=== PATIENT | male | born 1960 | race Caucasian/White ===

== ENCOUNTER 2023-02-09 10:44 | Inpatient (IN) | payer SELFPAY ==
[2023-02-09] VITALS (18 sets, daily range): BP systolic 105–165; BP diastolic 64–160; PULSE 93–115; RESP 6–28; TEMP 37–37.4; O2SAT 86–98
--- NOTE | 2023-02-09 11:15 | RT.EKG_ITS ---
APPROVED REPORT Exam: Resting ECG Reason for Exam: peter cole Patient Location: E HR:105 bpm ECG Measurements Heart Rate 105 AXIS IL 152 P 80 QRSd 99 QRS 251 QT 341 T -17 QTc 451 Conclusion Sinus tachycardia...rate> 99 Probable left atrial enlargement...P >50mS, <-0.10mV V1 Inferior infarct, old...Q >35mS, II III aVF Anterior infarct, old...Q >40mS, abnormal ST-T, V2-V5 Physician: elevation in anterior leads and minimal depression in inferior leads. does not meet stemi criterion. findings are new
[2023-02-09 12:04] LABS: Bilirubin Negative (Negative); Blood Negative (Negative); Clarity Clear (Clear); Glucose Negative (Negative); Ketones Negative (Negative); Leukocyte Esterase Negative (Negative); Nitrite Negative (Negative); Urobilinogen 0.2 mg/dL (Up to 0.2)
--- NOTE | 2023-02-09 12:25 | DI.RAD_ITS ---
Exam(s) XR FOOT LT COMPLETE EXAM: XR FOOT LT COMPLETE CLINICAL HISTORY: pain, redness. TECHNIQUE: 2D digital imaging was performed. COMPARISON: CR XR FOOT RT COMPLETE from 02/09/2023 FINDINGS: 3 views No evidence of acute fracture nor diastasis of the Lisfranc joint. Accessory ossicle on the medial a spect of the foot adjacent to the navicular tuberosity is similar to the opposite side. There are degenerative changes in the great toe metatarsophalangeal joint, more so laterally than med ially where there is significant joint space narrowing and osteophytes. Interphalangeal joint of the great toe appears unremarkable as does the 1st tarsometatarsal joint. Large inferior calcaneal spur is similar to the opposite side. Bone density normal. No osseous lesions. Dorsal soft tissue swel ling noted. There is no radiographic evidence of osteomyelitis. IMPRESSION: As above. DATA REPOSITORY: RADIATION DOSE DELIVERED:
--- NOTE | 2023-02-09 12:38 | W.ED.GENAD ---
Discharge Plan Disposition Patient Disposition: Admit to [facility] Discharge Details Clinical Impression: Anasarca, Alcohol use, Elevated BP without diagnosis of hypertension, Hyperbilirubinemia, Polycythemia Admit Date/Time: 02/09/23 13:47 Admit Provider: Larry Thornton Attending Provider: Larry Thornton Primary Care Provider: None,None ED Provider: Millie Raymond Discharge Data Discharge Date/Time-TO BE ENTERED AT DEPARTURE: 02/09/23 15:25 Medical Decision Making 62-year-old male with unknown medical history presents with anasarca to bilateral lower extremities, no abdominal bruit or pulsatile mass, distal pulses obtained via Doppler and intact, evidence of cellulitis to bilateral lower extremity secondary to blisters likely from edema, initiated on Zosyn, will order MRSA swab at the request of the admitting hospitalist and INR No obvious hepatomegaly or ascites on exam, abdomen completely nontender, distal pulses intact, no indication for emergent CT abdomen and pelvis BNP is quite elevated at 5200, we are going to obtain bedside ultrasound, however secondary to capacity limitations, this was not performed in the emergency department at this time He is in no acute respiratory distress He is on telemetry monitoring We will treat for cellulitis, anasarca with 20 mg of IV Lasix and diuretic na?ve patient Troponin negative x1, case discussed with admitting hospitalist COVID-19 0.5, hematocrit 60.9 Low suspicion for PE or DVT clinically with symmetrical and bilateral edema HPI General Date/Time Provider Initiated Documentation: 02/09/23 10:55. HPI Narrative: This 62-year-old male presents with report of bilateral leg swelling that started approximately a week ago. He denies any chest pain or shortness of breath. He denies any abdominal swelling. He states he also has had blisters that are very painful to his feet. He is having difficulty ambulating because of his swelling and pain. He denies any known fever or chills. He denies any orthopnea. He denies history of similar symptoms in the past. He drinks between 1 and 2 vodkas with coke daily, he smokes tobacco daily. He denies any illicit drug use. Related Data Home Medications Medication Instructions Recorded Confirmed Unknown [No Known Home Meds] 02/09/23 02/09/23 Allergies Allergy/AdvReac Type Severity Reaction Status Date / Time No Known Allergies Allergy Unverified 02/09/23 10:56 General Stated Complaint: GenMedical ESTER: 3 PFSH All Active Problems (Updated 02/10/23 @ 20:06 by KARYN Gold) Discharge planning issues (Acute) Polycythemia (Acute) Hyperbilirubinemia (Acute) Elevated BP without diagnosis of hypertension (Acute) Alcohol use (Acute) Tobacco abuse disorder (Acute) Anasarca (Acute) Social History Smoking/Tobacco Use Status: Current every day Tobacco Type: cigarettes Smoking risk assessment performed?: Yes Alcohol Intake: current Alcohol Intake frequency: 0-2 drinks per day Alcohol type: hard liquor Drug use: Never Substance use type: does not use Do you feel safe at home: Yes Do you feel safe in your relationship?: Yes Exam Narrative Exam Narrative: Patient disheveled, appears chronically ill, pupils equal round reactive to light and accommodation, lungs clear to auscultation bilaterally, cardiac rate and rhythm, tachycardic regular rhythm, no murmur, abdomen soft, no significant hepatomegaly, skin, erythema noted to bilateral feet, surrounding large ulcerations, no crepitus, fully alert and oriented, 4+ firm edema, anasarca to bilateral lower extremities extending up to the gluteal fold, no evidence of testicular involvement, no evidence of Hubert's gangrene, neurovascularly intact to bilateral lower and upper extremities Course Vital Signs Vital signs: Vital Signs Temperature 37.4 C 02/09/23 10:50 Pulse 113 H 02/09/23 10:50 Respiratory Rate 16 02/09/23 10:50 Blood Pressure 146/104 H 02/09/23 10:50 Pulse Oximetry 91 L 02/09/23 10:50 Temperature 37.4 C 02/09/23 10:50 Temperature Source Oral 02/09/23 10:50 Pulse 113 H 02/09/23 10:50 Respiratory Rate 16 02/09/23 10:50 Respiratory Effort Normal 02/09/23 10:54 Blood Pressure 146/104 H 02/09/23 10:50 Blood Pressure Position Sitting 02/09/23 10:50 Pulse Oximetry 91 L 02/09/23 10:50 Oxygen Delivery Method Room Air 02/09/23 10:50 Oxygen Flow Rate 0 02/09/23 10:50 Pain Level 8 02/09/23 10:50 Lab/Test Results Lab/Test Results: 02/09/23 12:24 Blood Blood Culture - Pending 02/09/23 12:22 Blood Blood Culture - Pending 02/09/23 12:22 Blood Blood Culture - Pending 02/09/23 12:15 Blood Blood Culture - Pending Laboratory Tests Range/Units 02/09/23 11:52 Urine Color (Yellow) Yellow Urine Clarity (Clear) Clear Urine pH (5-8) 7.0 Ur Specific Raymond (1.005-1.025) 1.020 Urine Protein (Negative) mg/dL Negative Urine Ketones (Negative) mg/dL Negative Urine Blood (Negative) Negative Urine Nitrite (Negative) Negative Urine Bilirubin (Negative) Negative Urine Urobilinogen (Up to 0.2) mg/dL 0.2 Ur Leukocyte Esterase (Negative) Negative Urine Glucose (Negative) mg/dL Negative PAWSS Have you Been Recently Intoxicated or Drunk Within the Last 30 days?: No Have you Ever Experienced Previous Episodes of Alcohol Withdrawal?: No Have you ever Experienced Withdrawal Seizures?: No Have you ever Experienced Delirium Tremens(DT)s?: No Have you ever undergone Alcohol Rehabilitation Treatment (i.e, inpt ot outpatient treatment programs)?: No Have you ever Experienced Blackouts?: No Have you ever Combined Alcohol with other Downers within the last 90 days?: No Have you ever Combined Alcohol with any other Substance of Abuse during the last 90 days?: No Result: 0
[2023-02-09 12:43] LABS: Abs Immature Grans 0.03 10^3/uL (0.0-0.06); Absolute Basophil Count 0.08 10^3/uL (0.0-0.2); Absolute Eosinophil Count 0.07 10^3/uL (0.0-0.7); Absolute Lymphocyte Count 0.83 10^3/uL (1.2-3.4); Absolute Monocyte Count 1.22 10^3/uL (0.1-0.8); Absolute Neutrophil Count 5.43 10^3/uL (1.2-6.7); Eosinophils % 0.9; Immature Grans % 0.4; Lymphocytes % 10.8; MCH 30.7 pg (27.0-33.0); MCV 96 fL (80-95); MPV 10.1 fL (8.0-11.0); Monocytes % 15.9; Platelet Count 144 10^3/uL (130-400); RBC 6.36 10^6/uL (4.36-5.78); RDW 15.4 % (11.8-14.1); RDW-SD 53.6 fL; WBC 7.66 10^3/uL (4.4-10.8)
--- NOTE | 2023-02-09 12:49 | DI.RAD_ITS ---
Exam(s) XR CHEST 2V PA LATERAL EXAM: XR CHEST 2V PA LATERAL CLINICAL HISTORY: shortness of breath. TECHNIQUE: 2D digital imaging was performed. COMPARISON: No exams were available for comparison FINDINGS: 2 views: Heart size is normal. The mediastinum is not widened. Lungs are clear. No infiltrates nor pleural effusions. IMPRESSION: No acute pulmonary findings. DATA REPOSITORY: RADIATION DOSE DELIVERED:
--- NOTE | 2023-02-09 12:49 | DI.RAD_ITS ---
Exam(s) XR FOOT RT COMPLETE EXAM: XR FOOT RT COMPLETE CLINICAL HISTORY: pain, redness. TECHNIQUE: 2D digital imaging was performed. COMPARISON: No exams were available for comparison FINDINGS: 3 views No evidence of acute fracture or diastasis of the Lisfranc joint. Large inferior calcaneal spur note d. Accessory ossicle noted on the medial aspect of the foot, this being a sesamoid bone in the dista l tibialis posterior tendon just proximal to the navicular tuberosity. Great toe metatarsophalangeal joint appears unremarkable. Mild degenerative changes are noted in the 1st tarsometatarsal joint. Bone density normal. There is no radiographic evidence of osteomyelitis. IMPRESSION: As above. DATA REPOSITORY: RADIATION DOSE DELIVERED:
[2023-02-09 13:00] LABS: HCT 60.9 % (40.0-50.0); HGB 19.5 g/dL (13.5-17.5)
[2023-02-09 13:11] LABS: ALT 31 U/L (16-63); AST 35 U/L (15-37); Albumin 3.6 g/dL (3.4-5.0); Alkaline Phosphatase 94 U/L (46-116); Anion Gap 1.5 mmol/L (3-11); BUN 7 mg/dL (7-18); CO2 39.5 mmol/L (21.0-32.0); CREATININE 0.9 mg/dL (0.70-1.30); Calcium 9.8 mg/dL (8.5-10.1); Chloride 96 mmol/L (98-107); Estimated GFR 95.97 (mL/min/1.73m2); Glucose 77 mg/dL (74-106); Magnesium 1.6 mg/dL (1.8-2.4); NT-proBNP 5735 pg/mL (<300); Potassium 4.1 mmol/L (3.5-5.1); Sodium 137 mmol/L (136-145); TSH (W/Ref FT4) 2.33 uIU/mL (0.36-3.74); Total Protein 8.2 g/dL (6.4-8.2); Troponin I < 50 ng/L (<or=60)
[2023-02-09 13:26] LABS: Lactate 1.2 mmol/L (0.6-1.4)
[2023-02-09] MEDS: PIPERACILLIN/TAZO 3.375 GM in Normal Saline 50 ML IVPB (13:35)
[2023-02-09] MEDS: Furosemide 20 MG/2 ML VIAL IVP ×2 (13:59→17:51)
[2023-02-09 15:23] LABS: Source Nasal/Nares
[2023-02-09 15:27] LABS: Troponin I < 50 ng/L (<or=60)
[2023-02-09 16:07] LABS: COVID-19 PCR Negative (Negative)
[2023-02-09] MEDS: Magnesium Oxide 400 MG TAB PO ×2 (16:12→19:26)
--- NOTE | 2023-02-09 16:38 | HPE_ITS ---
Date of service: 02/09/23 Time of Service: 16:38 Assessment and Plan Assessment and plan (1) Anasarca: Status: Acute Assessment and plan: No known heart disease; hasn't received health care for 30+ years. Echocardiogram ordered. Lasix 20mg IV given in ED and has been diuresing since; will give another 20mg IV now and the schedule BID; increase dose if output is inadequate. Elevate legs. No compression stockings d/t lesions on dorsum of feet, though will have wound care see and could consider Unna boots. Heart healthy diet. (2) Tobacco abuse disorder: Status: Acute Assessment and plan: He has cut-back from 1+ppd to 7 cigarettes daily. Nicoderm 21mg patch. Encourage ongoing cessation. (3) Alcohol use: Status: Acute Assessment and plan: He endorses 1-2 drinks of vodka daily. LFTs ok. Bilirubin mildly elevated. Monitor withdrawal symptoms and begin CIWA scoring if necessary. (4) Elevated BP without diagnosis of hypertension: Status: Acute Assessment and plan: Will monitor. If remains elevated initiate amlodipine 5mg daily. (5) Hyperbilirubinemia: Status: Acute Assessment and plan: Monitor. No abd pain/jaundice. (6) Polycythemia: Status: Acute Assessment and plan: Smoking related (chronic CO exposure from inhaled cigarette smoke). He is weaning off cigarettes. (7) Discharge planning issues: Status: Acute Assessment and plan: Consider costs of medications prescribed; self-pay. Will have f/u with PCP group designated on the day of admission; currently has no healthcare provider. History of Present Illness History of Present Illness Chief Complaint: Leg swelling Narrative: This is a 62 yo male who is not engaged with the medical community and has no known medical history. He does smoke cigarettes daily; down to 7/day from 1 ppd. He also endorses drinking two Vodka drinks daily. He presented to the ED c/o appx 1 week h/o bilateral leg swelling along with 2 blood blisters on distal dorsum of each foot that ruptured. He has been having difficulty ambulating because of the discomfort in both legs. No fever/chills. No CP/SOA. No N/V/abd pain. In the ED initial BP was 146/104 RA O2 saturation 91%. HR 113. Temp 37.4 Normal WBC count. Hgb 19.5. Plt 134. elevated absolute monocytes. lactate normal. K 4.1. CO2 elevated at 39.5. BUN 7. Creatinine 0.9. Glucose 77. Mg 1.6. Tot Bili 2.0. AST and ALT normal. NTProBNP elevated at 5735. CXR: normal sized heart. Lungs clear. Xrays of feet: No radiographic findings suggestive of osteomyelitis. Given a dose of IV lasix 20mg in the ED. Also given a dose of Zosyn for potential cellulitis of both feet. Pt admitted for further evaluation/treatments. Review of Systems All systems reviewed & are unremarkable except as noted in HPI and below PFSH All Active Problems (Updated 02/09/23 @ 17:08 by Larry Thornton MD) Discharge planning issues (Acute) Polycythemia (Acute) Hyperbilirubinemia (Acute) Elevated BP without diagnosis of hypertension (Acute) Alcohol use (Acute) Tobacco abuse disorder (Acute) Anasarca (Acute) Social History Smoking/Tobacco Use Status: Current every day Tobacco Type: cigarettes Smoking risk assessment performed?: Yes Alcohol Intake: current Alcohol Intake frequency: 0-2 drinks per day Alcohol type: hard liquor Drug use: Never Substance use type: does not use Do you feel safe at home: Yes Do you feel safe in your relationship?: Yes Meds Allergies and Home Medications Allergies Allergy/AdvReac Type Severity Reaction Status Date / Time No Known Allergies Allergy Unverified 02/09/23 10:56 Home Medications Medication Instructions Recorded Confirmed Type Unknown [No Known Home Meds] 02/09/23 02/09/23 History Exam Narrative Exam Narrative: Pleasant and conversant 62 yo male. Const General: cooperative and no acute distress Nutritional Appearance: overweight Orientation: alert and oriented x3 HENMT Head: normal to inspection and atraumatic Ears: hearing grossly normal bilaterally Eyes General: appearance normal, both eyes and all related structures Sclera: sclerae normal Chest Chest: normal inspection of the chest and no tenderness Resp Effort & Inspection: normal respiratory effort Auscultation: no rales, no wheezes and other (Coarse breath sounds. ) Cardio Jugular venous pressure: no JVD Rate: tachycardic Rhythm: regular rhythm GI Inspection: normal to inspection and non-distended Palpation: soft and nontender Auscultation: normal bowel sounds Skin Full body images: 1. Brawny skin discoloration. 2. Shallow circumscribed area of denuded blister. Erythema at margins. 3. Neuro General: no focal motor deficits Cranial Nerves: facial strength normal Cognition: normal cognition Speech: speech normal Extrem General: no calf tenderness and edema Laterality: bilateral (2-3+ pitting with edema to proximal thighs. ) Psych Appearance: grossly normal Mental Status: mental status grossly normal Mood: congruent mood Affect: normal affect Results Labs 02/09/23 12:28 02/09/23 12:28 Labs: Laboratory Results - last 24 hr 02/09/23 02/09/23 02/09/23 11:52 12:28 12:28 WBC 7.66 RBC 6.36 H Hgb 19.5 H* Hct 60.9 H* MCV 96 H MCH 30.7 MCHC 32.0 RDW 15.4 H Plt Count 144 MPV 10.1 Immature Gran % 0.4 Neutrophils % 71.0 Lymphocytes % 10.8 Monocytes % 15.9 Eosinophils % 0.9 Basophils % 1.0 Nucleated RBC % 0.0 Absolute Neutrophils 5.43 Absolute Lymphocytes 0.83 L Absolute Monocytes 1.22 H Absolute Eosinophils 0.07 Absolute Basophils 0.08 VBG Lactate Sodium 137 Potassium 4.1 Chloride 96 L Carbon Dioxide 39.5 H Anion Gap 1.5 L BUN 7 Creatinine 0.9 Est GFR (CKD-EPI 2020) 95.97 Glucose 77 Calcium 9.8 Magnesium 1.6 L Total Bilirubin 2.0 H AST 35 ALT 31 Alkaline Phosphatase 94 Troponin I < 50 NT-Pro-B Natriuret Pep 5735 H Total Protein 8.2 Albumin 3.6 TSH 2.33 Urine Color Yellow Urine Clarity Clear Urine pH 7.0 Ur Specific [place] 1.020 Urine Protein Negative Urine Ketones Negative Urine Blood Negative Urine Nitrite Negative Urine Bilirubin Negative Urine Urobilinogen 0.2 Ur Leukocyte Esterase Negative Urine Glucose Negative COVID-19 Source SARS-CoV-2 (PCR) 02/09/23 02/09/23 02/09/23 12:28 13:20 15:02 WBC RBC Hgb Hct MCV MCH MCHC RDW Plt Count MPV Immature Gran % Neutrophils % Lymphocytes % Monocytes % Eosinophils % Basophils % Nucleated RBC % Absolute Neutrophils Absolute Lymphocytes Absolute Monocytes Absolute Eosinophils Absolute Basophils VBG Lactate 1.2 Sodium Potassium Chloride Carbon Dioxide Anion Gap BUN Creatinine Est GFR (CKD-EPI 2020) Glucose Calcium Magnesium Total Bilirubin AST ALT Alkaline Phosphatase Troponin I < 50 NT-Pro-B Natriuret Pep Total Protein Albumin TSH Cancelled Urine Color Urine Clarity Urine pH Ur Specific [place] Urine Protein Urine Ketones Urine Blood Urine Nitrite Urine Bilirubin Urine Urobilinogen Ur Leukocyte Esterase Urine Glucose COVID-19 Source SARS-CoV-2 (PCR) 02/09/23 15:20 WBC RBC Hgb Hct MCV MCH MCHC RDW Plt Count MPV Immature Gran % Neutrophils % Lymphocytes % Monocytes % Eosinophils % Basophils % Nucleated RBC % Absolute Neutrophils Absolute Lymphocytes Absolute Monocytes Absolute Eosinophils Absolute Basophils VBG Lactate Sodium Potassium Chloride Carbon Dioxide Anion Gap BUN Creatinine Est GFR (CKD-EPI 2020) Glucose Calcium Magnesium Total Bilirubin AST ALT Alkaline Phosphatase Troponin I NT-Pro-B Natriuret Pep Total Protein Albumin TSH Urine Color Urine Clarity Urine pH Ur Specific [place] Urine Protein Urine Ketones Urine Blood Urine Nitrite Urine Bilirubin Urine Urobilinogen Ur Leukocyte Esterase Urine Glucose COVID-19 Source Nasal/Nares SARS-CoV-2 (PCR) Negative Last Vital Signs Temp 37.0 C 02/09/23 15:30 Pulse 110 H 02/09/23 15:30 Resp 20 02/09/23 15:30 BP 162/160 H 02/09/23 15:30 Pulse Ox 89 L 02/09/23 15:30 PAWSS Have you Been Recently Intoxicated or Drunk Within the Last 30 days?: No Have you Ever Experienced Previous Episodes of Alcohol Withdrawal?: No Have you ever Experienced Withdrawal Seizures?: No Have you ever Experienced Delirium Tremens(DT)s?: No Have you ever undergone Alcohol Rehabilitation Treatment (i.e, inpt ot outpatient treatment programs)?: No Have you ever Experienced Blackouts?: No Have you ever Combined Alcohol with other Downers within the last 90 days?: No Have you ever Combined Alcohol with any other Substance of Abuse during the last 90 days?: No Result: 0 Time Spent Time spent with Patient: 40-54 minutes Time was spent: preparing to see the patient(eg.review tests), obtaining and/or reviewing separately otained hiistory, ordering medications,tests, procedures, referring, communicating with other health child care education coordinator, indepentently interpreting results and counseling the patient
[2023-02-09 16:52] LABS: Lab Add On Test DONE
[2023-02-09 17:10] LABS: Hemoglobin A1C 5.8 % (<5.7)
[2023-02-09] MEDS: Enoxaparin 40 MG/0.4 ML SYR SC (17:51)
[2023-02-09] MEDS: Thiamine 100 MG TAB PO (17:51)
[2023-02-09] MEDS: Normal Saline Flush 10 ML SYR IVP (17:51)
[2023-02-09] MEDS: Doxycycline Hyclate 100 MG CAP PO (19:26)
--- NOTE | 2023-02-10 | DI.US_ITS ---
APPROVED REPORT EXAM: Comprehensive 2D, Doppler, and color-flow Echocardiogram Patient Location: In-Patient Registered Pharmacy Technician: Clive Soriano RDMS, RVT Indications: anasarca, smoker Other Information Study Quality: Fair. Technically limited study due to body habitus. Conclusion Normal left ventricular wall thickness and chamber size. Ejection fraction appears within the range of normal approximately 55% Right ventricle is severely dilated. There is paradoxic septal motion, evidence of right ventricular volume overload. Diastolic septal flattening suggests right ventricular pressure overload The right atrium is severely dilated. Left atrial size is normal Aortic valve is trileaflet without stenosis or regurgitation Structurally normal tricuspid valve with moderate to severe regurgitation. Estimated right ventricul ar systolic pressure is 58 mmHg Wall motion Left Ventricle The left ventricle is normal size. The left ventricular systolic function is normal. The left ventric ular ejection fraction is within the normal range. There is normal left ventricular wall thickness. F lattened septum consistent with right ventricular volume overload. There is global hypokinesis of the left ventricle. There is no ventricular septal defect visualized. LVEF is 55%. Right Ventricle Right ventricle is severely dilated. Right ventricle is hypokinetic. The RVSP is 58.3 mmHg. Atria The left atrium size is normal. Right atrium is severely dilated. The interatrial septum is intact wi th no evidence for an atrial septal defect. Aortic Valve The aortic valve is normal in structure. Aortic valve is trileaflet. There is no aortic valvular sten osis. No aortic regurgitation is present. Mitral Valve The mitral valve is normal in structure. No evidence of mitral valve stenosis. Trace mitral regurgita tion. Tricuspid Valve The tricuspid valve is normal in structure. There is no tricuspid valve stenosis. Moderate to severe tricuspid regurgitation. Pulmonic Valve The pulmonary valve is normal in structure. There is no pulmonic valvular stenosis. There is no pulmo monique valvular regurgitation. Great Vessels The aortic root is normal in size. The ascending aorta is normal in size. Ascending aorta is not visu alized. The IVC collapses <50% with inspiration. Pericardium There is no pericardial effusion. 2D Dimensions Ao Root d 3.14 cm M: 3.1 - 3.7 LV Vol A2C d MOD 102.5 mL Ao Asc Diam d 2.85 cm M: 2.6 - 3.4 LV Vol A4C d MOD 97.4 mL LVEF ([facility]) 47.27 % M: 52 - 72 LV EF A4C MOD 47.6 % LV Volume 79.82 mL M: 62 - 150 LV EF A2C MOD 45.8 % LV Volume Index 38.00 mL/m2 M: 34 - 74 LV EF Biplane MOD 47.3 % LV Vol Biplane MOD 108.1 mL SV 51.09 mL SV Index 24.37 mL/m2 M-Mode TAPSE 1.34 cm (M/F) >1.7 LV Diastology MV E' medial 0.080 (>0.07 m/s) MV E' lateral 0.104 (>0.1 m/s) Aortic Valve LVOT Area 3.50 cm2 AoV Area Vmax 2.78 cm2 LVOT Vmax 0.90 m/s AoV Area/ BSA (Vmax) 1.33 cm2/m2 LVOT Mean Carlos. 0.67 m/s NIRALI Mean Carlos. 2.57 cm2 LVOT Peak Grad 3.2 mmHg NIRALI Mean Carlos. Index 1.23 cm2/m2 LVOT Mean Grad 2.0 mmHg LVOT VTI 0.141 m LVOT Diam s 2.10 cm AoV Vmax 1.13 m/s Velocity Ratio 0.80 AoV Mean Carlos. 0.91 m/s AoV Peak Grad 5.1 mmHg LVOT SV 49.44 mL AoV Mean Grad 3.6 mmHg AoV VTI 0.192 m AoV Area VTI 2.57 cm2 AoV Area/ BSA (VTI) 1.23 cm/m2 Mitral Valve MV VTI 0.138 m MV Area VTI 3.59 (4.0-6.0 cm2) Tricuspid Valve TR Peak Grad 50.3 mmHg TR Vmax 3.55 m/s RA Pressure 8.00 mmHg RVSP (TR) 58.3 mmHg
[2023-02-10 07:15] VITALS: BP 127/85; PULSE 77; RESP 20; TEMP 37; O2SAT 81
[2023-02-10 07:30] VITALS: PULSE 77; RESP 20; O2SAT 93
[2023-02-10 08:23] LABS: ALT 17 U/L (16-63); AST 23 U/L (15-37); Albumin 2.7 g/dL (3.4-5.0); Alkaline Phosphatase 68 U/L (46-116); Anion Gap 1.8 mmol/L (3-11); BUN 9 mg/dL (7-18); Bilirubin, Total 1.9 mg/dL (0.2-1.0); CO2 38.2 mmol/L (21.0-32.0); CREATININE 0.9 mg/dL (0.70-1.30); Calcium 9.3 mg/dL (8.5-10.1); Chloride 97 mmol/L (98-107); Estimated GFR 95.97 (mL/min/1.73m2); Glucose 85 mg/dL (74-106); Magnesium 1.5 mg/dL (1.8-2.4); Potassium 4.2 mmol/L (3.5-5.1); Sodium 137 mmol/L (136-145); Total Protein 6.5 g/dL (6.4-8.2)
[2023-02-10] MEDS: Doxycycline Hyclate 100 MG CAP PO ×2 (09:18→20:22)
[2023-02-10] MEDS: Thiamine 100 MG TAB PO (09:18)
[2023-02-10] MEDS: Magnesium Oxide 400 MG TAB PO ×3 (09:18→20:22)
[2023-02-10] MEDS: Folic Acid 1 MG TAB PO (09:19)
[2023-02-10] MEDS: Aspirin 81 MG CHEW PO (09:19)
[2023-02-10] MEDS: Furosemide 20 MG/2 ML VIAL IVP (09:19)
[2023-02-10] MEDS: Normal Saline Flush 10 ML SYR IVP ×2 (09:20→16:57)
[2023-02-10 11:08] LABS: Abs Immature Grans 0.02 10^3/uL (0.0-0.06); Absolute Basophil Count 0.06 10^3/uL (0.0-0.2); Absolute Eosinophil Count 0.13 10^3/uL (0.0-0.7); Absolute Lymphocyte Count 1.09 10^3/uL (1.2-3.4); Absolute Monocyte Count 1.44 10^3/uL (0.1-0.8); Absolute Neutrophil Count 4.52 10^3/uL (1.2-6.7); Basophils % 0.8; Eosinophils % 1.8; HCT 56.6 % (40.0-50.0); HGB 18.3 g/dL (13.5-17.5); Immature Grans % 0.3; MCH 31.2 pg (27.0-33.0); MCHC 32.3 % (32.0-36.0); MCV 97 fL (80-95); MPV 10.7 fL (8.0-11.0); Monocytes % 19.8; Neutrophils % 62.3; Platelet Count 148 10^3/uL (130-400); RBC 5.86 10^6/uL (4.36-5.78); RDW 15.1 % (11.8-14.1); RDW-SD 53.5 fL; WBC 7.26 10^3/uL (4.4-10.8)
--- NOTE | 2023-02-10 14:10 | W.PM.PROGNOT ---
Date of Service Date of service: 02/10/23 Time of Service: 14:10 Assessment and Plan Assessment and plan (1) Anasarca: Status: Acute Assessment and plan: No known heart disease; hasn't received health care for 30+ years. Echocardiogram: Normal left ventricular wall thickness and chamber size.? Ejection fraction appears within the range of normal approximately 55% Right ventricle is severely dilated.? There is paradoxic septal motion, evidence of right ventricular volume overload.? Diastolic septal flattening suggests right ventricular pressure overload The right atrium is severely dilated.? Left atrial size is normal Aortic valve is trileaflet without stenosis or regurgitation Structurally normal tricuspid valve with moderate to severe regurgitation.? Estimated right ventricular systolic pressure is 58 mmHg Lasix 20mg IV given in ED and has been diuresing since; will give another 20mg IV once arrived on med-surg unit and then scheduled BID. Will increase lasix to 40mg IV BID Add spironolactone 50mg daily. Elevate legs. ABIs ordered and if OK, then apply Unna boots. Heart healthy diet. (2) Tobacco abuse disorder: Status: Acute Assessment and plan: He has cut-back from 1+ppd to 7 cigarettes daily. Nicoderm 21mg patch. Encourage ongoing cessation. (3) Alcohol use: Status: Acute Assessment and plan: He endorses 1-2 drinks of vodka daily. LFTs ok. Bilirubin mildly elevated. Monitor withdrawal symptoms and begin CIWA scoring if necessary. Cont thiamine supplementation. (4) Elevated BP without diagnosis of hypertension: Status: Acute Assessment and plan: Will monitor. Today SBP has been widely variable from low 100's to 160 systolic. Receiving IV lasix and starting spironolactone. (5) Hyperbilirubinemia: Status: Acute Assessment and plan: Total bili 2.0 > 1.9. Monitor. No abd pain/jaundice. (6) Polycythemia: Status: Acute Assessment and plan: Smoking related (chronic CO exposure from inhaled cigarette smoke). He is weaning off cigarettes. (7) Discharge planning issues: Status: Acute Assessment and plan: Consider costs of medications prescribed; self-pay. Will have f/u with PCP group designated on the day of admission; currently has no healthcare provider. BETTIE to reach out and discussion any medical insurance options that might be available to him. Subjective Subjective Patient reports: no new complaints, feels better, tolerating a regular diet and afebrile; denies nausea, vomiting or shortness of breath Interval history since last seen: He notes less tightness in shantel lower legs. Exam Narrative Exam Narrative: Pleasant and conversant 62 yo male. Const General: cooperative and no acute distress Nutritional Appearance: overweight Orientation: alert and oriented x3 HENMT Head: normal to inspection and atraumatic Ears: hearing grossly normal bilaterally Eyes General: appearance normal, both eyes and all related structures Sclera: sclerae normal Chest Chest: normal inspection of the chest and no tenderness Resp Effort & Inspection: normal respiratory effort Auscultation: no rales, no wheezes and other (Coarse breath sounds. ) Cardio Jugular venous pressure: no JVD Rate: tachycardic Rhythm: regular rhythm GI Inspection: normal to inspection and non-distended Palpation: soft and nontender Auscultation: normal bowel sounds Neuro General: no focal motor deficits Cranial Nerves: facial strength normal Cognition: normal cognition Speech: speech normal Extrem General: no calf tenderness and edema Laterality: bilateral (2-3+ pitting with edema to proximal thighs. ) Psych Appearance: grossly normal Mental Status: mental status grossly normal Mood: congruent mood Affect: normal affect Objective Last Vital Signs Temp 37 C 02/10/23 07:15 Pulse 77 02/10/23 07:30 Resp 20 02/10/23 07:30 BP 127/85 02/10/23 07:15 Pulse Ox 93 02/10/23 07:30 Laboratory Results - last 24 hr 02/09/23 02/09/23 02/09/23 12:28 15:02 15:20 WBC RBC Hgb Hct MCV MCH MCHC RDW Plt Count MPV Immature Gran % Neutrophils % Lymphocytes % Monocytes % Eosinophils % Basophils % Nucleated RBC % Absolute Neutrophils Absolute Lymphocytes Absolute Monocytes Absolute Eosinophils Absolute Basophils Sodium Potassium Chloride Carbon Dioxide Anion Gap BUN Creatinine Est GFR (CKD-EPI 2020) Glucose Hemoglobin A1c 5.8 H Calcium Magnesium Total Bilirubin AST ALT Alkaline Phosphatase Troponin I < 50 Total Protein Albumin COVID-19 Source Nasal/Nares SARS-CoV-2 (PCR) Negative Add-On Test Request 02/09/23 02/10/23 02/10/23 Unknown 05:52 05:52 WBC 7.26 RBC 5.86 H Hgb 18.3 H Hct 56.6 H MCV 97 H MCH 31.2 MCHC 32.3 RDW 15.1 H Plt Count 148 MPV 10.7 Immature Gran % 0.3 Neutrophils % 62.3 Lymphocytes % 15.0 Monocytes % 19.8 Eosinophils % 1.8 Basophils % 0.8 Nucleated RBC % 0.0 Absolute Neutrophils 4.52 Absolute Lymphocytes 1.09 L Absolute Monocytes 1.44 H Absolute Eosinophils 0.13 Absolute Basophils 0.06 Sodium 137 Potassium 4.2 Chloride 97 L Carbon Dioxide 38.2 H Anion Gap 1.8 L BUN 9 Creatinine 0.9 Est GFR (CKD-EPI 2020) 95.97 Glucose 85 Hemoglobin A1c Calcium 9.3 Magnesium 1.5 L Total Bilirubin 1.9 H AST 23 ALT 17 Alkaline Phosphatase 68 Troponin I Total Protein 6.5 Albumin 2.7 L COVID-19 Source SARS-CoV-2 (PCR) Add-On Test Request DONE PAWSS Have you Been Recently Intoxicated or Drunk Within the Last 30 days?: No Have you Ever Experienced Previous Episodes of Alcohol Withdrawal?: No Have you ever Experienced Withdrawal Seizures?: No Have you ever Experienced Delirium Tremens(DT)s?: No Have you ever undergone Alcohol Rehabilitation Treatment (i.e, inpt ot outpatient treatment programs)?: No Have you ever Experienced Blackouts?: No Have you ever Combined Alcohol with other Downers within the last 90 days?: No Have you ever Combined Alcohol with any other Substance of Abuse during the last 90 days?: No Result: 0 Time Spent with Patient Time Spent with Patient: 25-34 minutes Time was spent: preparing to see the patient(eg.review tests), ordering medications,tests, procedures, referring, communicating with other health healthcare facility administrator, indepentently interpreting results and counseling the patient
[2023-02-10 14:44] VITALS: RESP 20; O2SAT 95; O2SAT 97
[2023-02-10 14:45] VITALS: BP 168/108; PULSE 104
[2023-02-10] MEDS: Enoxaparin 40 MG/0.4 ML SYR SC (16:57)
[2023-02-10] MEDS: Furosemide 20 MG/2 ML VIAL 40 MG IVP (16:57)
--- NOTE | 2023-02-10 17:15 | PDOC.CMIN ---
- If Service Date Differs Date of service: 02/10/23 Time of Service: 17:15 Care Management Initial Assess REASON FOR HOSPITALIZATION:: Anasarca PAST MEDICAL HISTORY/PAST SURGICAL HISTORY:: All Active Problems. Discharge planning issues (Acute). Polycythemia (Acute). Hyperbilirubinemia (Acute). Elevated BP without diagnosis of hypertension (Acute). Alcohol use (Acute). Tobacco abuse disorder (Acute). Anasarca (Acute) PREVIOUS FUNCTIONAL STATUS/SOCIAL/FAMILY SUPPORTS:: Eddie Francisco lives in [facility]. 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 He is independent at baseline. CURRENT FUNCTIONAL STATUS:: Nolan was sitting up in bed when CM met with him. He stated that he is concerned about not having insurance, and he does not have a PCP because he hasn't needed one. CM will coordinate a post hospitalization follow up appointment with the paper cone machine operator provider. CM sent a referral to Karla for insurance support. CM will continue to follow. ADVANCE DIRECTIVES:: None on file. CM will offer forms. Has patient been provided with info about the portal/API?: Yes Did the patient sign up for the portal?: No CODE STATUS:: Full Code INSURANCE COVERAGE / FINANCIAL ISSUES:: self pay CURRENT HOME/COMMUNITY SERVICES/EQUIPMENT:: none PRIMARY CARE PHYSICIAN:: none POTENTIAL DISCHARGE NEEDS:: Evaluations for further needs, insurance support, PCP follow up PATIENT/FAMILY EDUCATION NEEDS:: Review discharge instructions and limitations, discussion of self care needs including ask me three. ANTICIPATED BARRIERS TO DISCHARGE:: None TRANSPORTATION:: Via private vehicle. PLAN:: Anticipate Nolan will return home when medically cleared. He will follow up with the paper cone machine operator provider, coordinated by CM, and his discharge plan of care. CM will continue to follow.
[2023-02-10 20:09] LABS: PSA, Diagnostic 0.7 ng/mL (<=4.5)
[2023-02-10 23:09] VITALS: BP 110/70; PULSE 108; RESP 20; TEMP 36.3; O2SAT 84
[2023-02-11 06:45] VITALS: BP 112/68; PULSE 106; RESP 18; TEMP 36.3; O2SAT 88
[2023-02-11 08:28] VITALS: BP 123/73; PULSE 109; RESP 20; TEMP 37.4; O2SAT 92
[2023-02-11] MEDS: Aspirin 81 MG CHEW PO (08:36)
[2023-02-11] MEDS: Folic Acid 1 MG TAB PO (08:36)
[2023-02-11] MEDS: Thiamine 100 MG TAB PO (08:36)
[2023-02-11] MEDS: Magnesium Oxide 400 MG TAB PO (08:36)
[2023-02-11] MEDS: Doxycycline Hyclate 100 MG CAP PO (08:36)
[2023-02-11] MEDS: Furosemide 20 MG/2 ML VIAL 40 MG IVP (08:37)
[2023-02-11 09:35] VITALS: PULSE 102; PULSE 115; PULSE 80; RESP 16; O2SAT 85; O2SAT 90; O2SAT 91
--- NOTE | 2023-02-11 09:40 | DSE_ITS ---
Date of service: 02/11/23 Time of Service: 09:41 DS: Diagnosis Discharge Diagnosis (1) Anasarca: Status: Acute Asessment and Plan: Secondary to Right sided heart failure. Diuresed with IV lasix and discharging on lasix 40mg po daily and spironolactone 50mg po daily. Due to his lack of insurance, there is a need to be cost conscious with medication prescribing. (2) Tobacco abuse disorder: Status: Acute Asessment and Plan: He was placed on a nicoderm patch during course of hospitalization. He has cut back to 7 cigarettes daily and is weaning off until not smoking. (3) Alcohol use: Status: Acute Asessment and Plan: Endorses 1-2 glasses of vodka on most days. Total bilirubin 2.0 > 1.9. LFTs normal. Thiamine and folate initiated. Cont OTC thiamine. (4) Elevated BP without diagnosis of hypertension: Status: Acute Asessment and Plan: With diuretic use, lasix, his BP has significantly improved. This will need to be followed as outpt. (5) Hyperbilirubinemia: Status: Acute Asessment and Plan: Likely secondary to alcohol us but potentially has hepatic steatorrhea. (6) Polycythemia: Status: Acute Asessment and Plan: Secondary to hypoxia from chronic tobaccao use. (7) Discharge planning issues: Status: Acute Asessment and Plan: Care management gave his number to Karla; agency that can guide him for insurance support. He will f/u with the on-call PCP and can hopefully establish care in that practice. He will ultimately need a pulmonary medicine appointment and screenings that are age appropriate since has had none. (8) Pulmonary hypertension: Status: Acute Asessment and Plan: Estimated right ventricular systolic pressure is 58 mmHg. Severely dilated right atrium and ventricle. D/C on diuretics. Will need further w/u and medications, but this will have to wait until he is able to obtain health insurance due what will be significant costs. Low Na diet He qaualified for supplemental O2 with ambulation; required 3 liters to maintain O2 saturation above 88%. At rest, after the exercise oxygen testing, his O2 saturations was 91%. He declined home O2. He likely has a chronic baseline hypoxemia. Carbon dioxide levels were elevated at 38 and 39. Discharge Plan Disposition Patient Disposition: Home Condition: Improving Discharge Details Reason For Visit: Oliva Admit Date/Time: 02/09/23 13:47 Admit Provider: Larry Thornton Attending Provider: Larry Thornton Primary Care Provider: None,None Hospital Course Hospital Course: This is a 62 yo male who is not engaged with the medical community for appx 30 years and has no known medical history.? He does smoke cigarettes daily; down to 7/day from 1 ppd.? He also endorses drinking two Vodka drinks daily.? He presented to the ED c/o appx 1 week h/o bilateral leg swelling along with 2 blood blisters on distal dorsum of each foot that ruptured.? He has been having difficulty ambulating because of the discomfort in both legs.? No fever/chills.? No CP/SOA. No N/V/abd pain.? In the ED initial BP was 146/104 RA O2 saturation 91%.? HR 113.? Temp 37.4 Normal WBC count.? Hgb 19.5.? Plt 134. elevated absolute monocytes. lactate normal.? K 4.1. CO2 elevated at 39.5.? BUN 7. Creatinine 0.9. Glucose 77.? Mg 1.6.? Tot Bili 2.0.? AST and ALT normal. NTProBNP elevated at 5735. CXR: normal sized heart. Lungs clear. Xrays of feet:? No radiographic findings suggestive of osteomyelitis. Given a dose of IV lasix 20mg in the ED.? Also given a dose of Zosyn for potential cellulitis of both feet. See Diagnosis Follow up with on-call physician office in 1-2 weeks. Home Meds and New Rx's Prescriptions: New doxycycline hyclate 100 mg Capsule 100 mg PO BID Qty: 12 0RF magnesium oxide 400 mg (241.3 mg magnesium) Tablet 400 mg PO BID Qty: 0 0RF aspirin [Children's Aspirin] 81 mg Tablet,Chewable 81 mg PO DAILY Qty: 0 0RF thiamine mononitrate (vit B1) [Vitamin B-1 (mononitrate)] 100 mg Tablet 100 mg PO QAM Qty: 0 0RF spironolactone 50 mg tablet 50 mg PO DAILY Qty: 30 0RF furosemide [Lasix] 20 mg tablet 40 mg PO Q OTHER DAY Qty: 60 0RF Discharge Instructions Additional Instructions: Elevate legs so feet are above heart level frequently during the day. Stand Alone Forms: Nursing Discharge Form Referrals: SHANNAN HUTCHINSON [ NON-[facility] STAFF PHYSICIAN] - 02/25/23 2:20 pm Activity:: Activity as Tolerated Equipment/Supplies:: No Equipment Needed Diet:: Low Sodium Discharge Orders Discharge Orders: Discharge Order (Routine); Ordered 02/11/23 Ordered By: Larry Thornton DS: Summary Time Spent with Patient providing and/or coordinating discharge services: Greater than 30 minutes Status at Discharge Functional status at discharge: independent ambulation Overall status at discharge: patient is back to baseline Mental Status: mental status grossly normal Speech and Movement: speech clear Mood: congruent mood Affect: normal affect Exam Narrative Exam Narrative: Pleasant and conversant 62 yo male. Const General: cooperative and no acute distress Nutritional Appearance: overweight Orientation: alert and oriented x3 HENMT Head: normal to inspection and atraumatic Ears: hearing grossly normal bilaterally Eyes General: appearance normal, both eyes and all related structures Sclera: sclerae normal Chest Chest: normal inspection of the chest and no tenderness Resp Effort & Inspection: normal respiratory effort Auscultation: no rales, no wheezes and other (Coarse breath sounds. ) Cardio Jugular venous pressure: no JVD Rate: tachycardic Rhythm: regular rhythm GI Inspection: normal to inspection and non-distended Palpation: soft and nontender Auscultation: normal bowel sounds Neuro General: no focal motor deficits Cranial Nerves: facial strength normal Cognition: normal cognition Speech: speech normal Extrem General: no calf tenderness and edema Laterality: bilateral (2-3+ pitting with edema to proximal thighs. ) Psych Appearance: grossly normal Mental Status: mental status grossly normal Speech and Movement: speech clear Mood: congruent mood Affect: normal affect DS: Data Vitals/I&O Vitals and I&O: Vital Signs Temperature 37.4 C 02/11/23 08:28 Temperature Source Tympanic 02/11/23 08:28 Pulse 109 H 02/11/23 08:28 Pulse Rhythm Regular 02/10/23 15:30 Pulse 104 H 02/10/23 14:45 Respiratory Rate 20 02/11/23 08:28 Respiratory Effort Normal 02/10/23 23:50 Respiratory Depth Normal 02/10/23 23:50 Respiratory Pattern Normal 02/10/23 23:50 Blood Pressure 123/73 04/14/23 08:28 Blood Pressure Mean 119 02/09/23 15:01 Blood Pressure Position Sitting 02/09/23 10:50 Pulse Oximetry 92 02/11/23 08:28 Oxygen Delivery Method Nasal Cannula 02/11/23 08:28 Oxygen Flow Rate 2 02/11/23 08:28 Pain Level 0 02/11/23 06:45 Comment just went for walk. 02/11/23 06:45 Intake & Output 02/10/23 02/10/23 02/11/23 11:59 23:59 11:59 Intake Total 840 / 1080 240 / 1080 Output Total 400 / 800 400 / 800 Balance 440 / 280 -160 / 280 Weight 90.3 kg 88.3 kg Intake: Oral 840 / 1080 240 / 1080 Output: Urine 400 / 800 400 / 800 Other: Urine Color Yellow Yellow Urine Appearance Clear Clear Urine Odor Normal Comment pt voided in toilet Voiding Methods Urinal Toilet Data Completed and Pending Labs on day of discharge: Labs from last 24 hours 02/10/23 02/10/23 02/09/23 05:52 05:52 15:02 WBC 7.26 RBC 5.86 H Hgb 18.3 H Hct 56.6 H MCV 97 H MCH 31.2 MCHC 32.3 RDW 15.1 H Plt Count 148 MPV 10.7 Immature Gran % 0.3 Neutrophils % 62.3 Lymphocytes % 15.0 Monocytes % 19.8 Eosinophils % 1.8 Basophils % 0.8 Nucleated RBC % 0.0 Absolute Neutrophils 4.52 Absolute Lymphocytes 1.09 L Absolute Monocytes 1.44 H Absolute Eosinophils 0.13 Absolute Basophils 0.06 Sodium 137 Potassium 4.2 Chloride 97 L Carbon Dioxide 38.2 H Anion Gap 1.8 L BUN 9 Creatinine 0.9 Est GFR (CKD-EPI 2020) 95.97 Glucose 85 Calcium 9.3 Magnesium 1.5 L Total Bilirubin 1.9 H AST 23 ALT 17 Alkaline Phosphatase 68 Total Protein 6.5 Albumin 2.7 L Prostate Specific Ag 0.7 Preliminary micro results at discharge 02/09/23 13:20 Blood Culture - Preliminary Blood NO GROWTH 24 HOURS 02/09/23 12:24 Blood Culture - Preliminary Blood NO GROWTH 24 HOURS 02/09/23 13:04 Wound Culture - Preliminary Foot - Left Gram Positive Katharina,Mixed PFSH All Active Problems (Updated 02/11/23 @ 12:31 by Larry Thornton MD) Pulmonary hypertension (Acute) Discharge planning issues (Acute) Polycythemia (Acute) Hyperbilirubinemia (Acute) Elevated BP without diagnosis of hypertension (Acute) Alcohol use (Acute) Tobacco abuse disorder (Acute) Anasarca (Acute) Social History Smoking/Tobacco Use Status: Current every day Tobacco Type: cigarettes Smoking risk assessment performed?: Yes Alcohol Intake: current Alcohol Intake frequency: 0-2 drinks per day Alcohol type: hard liquor Drug use: Never Substance use type: does not use Do you feel safe at home: Yes Do you feel safe in your relationship?: Yes Time Spent with Patient Time Spent with Patient: 45-69 minutes Time was spent: preparing to see the patient(eg.review tests), obtaining and/or reviewing separately otained hiistory, ordering medications,tests, procedures, referring, communicating with other health anesthesiologist and critical care, indepentently interpreting results, counseling the patient and care coordination
[2023-02-11 09:45] VITALS: O2SAT 91
--- NOTE | 2023-02-11 18:29 | CMDISCH_ITS ---
- If Service Date Differs Date of service: 02/11/23 Time of Service: 18:29 LACE Index Scoring Tool - Questions: Length of Stay (in days): 2 Acuity (Admit via E.D.?): Yes E.D. Visits: 1 - Answers: Total Score: 6 Risk of Readmission: Low Risk Care Management Discharge Reason for Hospitalization: Anasarca Discharge Plan: Eddie returned home today with no new services. MARIA ALEJANDRA sent a referral to [employer] for insurance support, and emailed them today to follow up on the referral. MARIA ALEJANDRA informed Eddie that Karla would contact him via phone. MARIA ALEJANDRA set up a follow up appointment for Eddie at [facility] with Norma Ba, who was sprinkler irrigation equipment mechanic when he arrived to the ED. He will follow up with his discharge plan of care. Patient/Family Education Needs: Review discharge instructions and limitations, discussion of self care needs including ask me three.
== END 2023-02-10 12:40 | disposition home or self-care (01) | DRG 292 ==
LOC: ER 14:38 → MS 15:30
PROVIDERS: Admitting Provider Family Medicine; Emergency Provider Physician Assistant; Visit Provider Family Medicine
DX: I50.810 Right heart failure, unspecified (principal); L03.115 Cellulitis of right lower limb; L03.116 Cellulitis of left lower limb; R60.1 Generalized edema; F17.210 Nicotine dependence, cigarettes, uncomplicated; D75.1 Secondary polycythemia; F10.90 Alcohol use, unspecified, uncomplicated; E80.6 Other disorders of bilirubin metabolism; R03.0 Elevated blood-pressure reading, without diagnosis of hypertension; I27.29 Other secondary pulmonary hypertension
CPT/HCPCS: 80053; 87040; 87077; 87635; 93005; 94618; 96365; 96375; 99285; J1650; 71046; 73630; 81003; 83036; 83605; 83735; 83880; 84153; 84443; 84484; 85025; 87070; 87186; 87205; 93010; 93306; 99222; 99232; 99239; J1941; J2543

== ENCOUNTER 2023-02-25 16:16 | Outpatient (REF) | payer SELFPAY ==
[2023-02-25 18:31] LABS: Abs Immature Grans 0.03 10^3/uL (0.0-0.06); Absolute Basophil Count 0.09 10^3/uL (0.0-0.2); Absolute Eosinophil Count 0.15 10^3/uL (0.0-0.7); Absolute Lymphocyte Count 1.42 10^3/uL (1.2-3.4); Absolute Monocyte Count 1.11 10^3/uL (0.1-0.8); Absolute Neutrophil Count 6.82 10^3/uL (1.2-6.7); Basophils % 0.9; Eosinophils % 1.6; HCT 53.5 % (40.0-50.0); HGB 17.3 g/dL (13.5-17.5); Immature Grans % 0.3; Lymphocytes % 14.8; MCH 31.3 pg (27.0-33.0); MCHC 32.3 % (32.0-36.0); MCV 97 fL (80-95); Monocytes % 11.5; Neutrophils % 70.9; Platelet Count 152 10^3/uL (130-400); RBC 5.53 10^6/uL (4.36-5.78); RDW 15.2 % (11.8-14.1); RDW-SD 54.4 fL; WBC 9.62 10^3/uL (4.4-10.8)
[2023-02-25 18:43] LABS: ALT 17 U/L (16-63); AST 24 U/L (15-37); Alkaline Phosphatase 81 U/L (46-116); Anion Gap 3.7 mmol/L (3-11); BUN 18 mg/dL (7-18); Bilirubin, Total 0.8 mg/dL (0.2-1.0); CO2 34.3 mmol/L (21.0-32.0); CREATININE 0.9 mg/dL (0.70-1.30); Calcium 9.1 mg/dL (8.5-10.1); Chloride 98 mmol/L (98-107); Estimated GFR 95.97 (mL/min/1.73m2); Glucose 67 mg/dL (74-106); Potassium 4.4 mmol/L (3.5-5.1); Sodium 136 mmol/L (136-145)
== END 2023-02-25 16:17 | disposition home or self-care (01) ==
LOC: NCHCN 16:16
PROVIDERS: PCP Nurse Practitioner Family; Visit Provider Nurse Practitioner Family
DX: L03.115 Cellulitis of right lower limb (principal); L03.116 Cellulitis of left lower limb; L08.89 Other specified local infections of the skin and subcutaneous tissue
CPT/HCPCS: 80053; 85025

== ENCOUNTER 2023-04-27 09:06 | Inpatient (IN) | payer SELFPAY ==
[2023-04-27] VITALS (39 sets, daily range): BP systolic 110–155; BP diastolic 65–104; PULSE 104–121; RESP 13–42; TEMP 36.6–36.8; O2SAT 76–99
--- NOTE | 2023-04-27 09:15 | RT.EKG_ITS ---
APPROVED REPORT Exam: Resting ECG Reason for Exam: sob Patient Location: E HR:110 bpm ECG Measurements Heart Rate 110 AXIS LA 155 P 71 QRSd 90 QRS 165 QT 336 T -37 QTc 456 Conclusion Sinus tachycardia...rate> 99 Probable left atrial enlargement...P >50mS, <-0.10mV V1 Low voltage with right axis deviation...low voltage, RAD Probable right ventricular hypertrophy...prominent R or R' w/ RAD or JASMIN Physician: no stemi
--- NOTE | 2023-04-27 09:28 | W.ED.GENAD ---
Discharge Plan Disposition Patient Disposition: Home Condition: Good Discharge Details Chief Complaint: SOB Clinical Impression: Anasarca, COPD exacerbation, Hypoxemia Primary Care Provider: Norma Ba ED Provider: Ant Hernández Home Meds and New Rx's Prescriptions: No Action doxycycline hyclate 100 mg Capsule 100 mg PO BID Qty: 12 0RF magnesium oxide 400 mg (241.3 mg magnesium) Tablet 400 mg PO BID Qty: 0 0RF aspirin [Children's Aspirin] 81 mg Tablet,Chewable 81 mg PO DAILY Qty: 0 0RF thiamine mononitrate (vit B1) [Vitamin B-1 (mononitrate)] 100 mg Tablet 100 mg PO QAM Qty: 0 0RF spironolactone 50 mg tablet 50 mg PO DAILY Qty: 30 0RF furosemide [Lasix] 20 mg tablet 40 mg PO Q OTHER DAY Qty: 60 0RF Medical Decision Making 62-year-old male with a past medical history of polycythemia, hypertension, reactive airway disease, edema, alcohol abuse, presents today for evaluation of shortness of breath, edema. Patient is not overly clear in his past medical history, and recommends repeatedly that we refer to his medical file. He states that in the past January 2023 he had edema, was admitted, diuresed, subsequently discharged. He had no insurance at that time and declined additional work-up. He was discharged home and has been taking Lasix since then. He does miss doses occasionally. Additionally he was prescribed outpatient inhalers, however because of the cost he did not get these and ordered them from [facility], but unfortunately they have not arrived. Over the last 3 to 5 days he has had mild to moderate swelling in his lower extremities, as well as his groin area. He also has had notable difficulty urinating. He denies any significant change in his diet. He denies any chest pain or abdominal pain otherwise. He does admit to shortness of breath, as well as mild cough. He denies vomiting or diarrhea. No dysuria. No other complaints at this time. He feels more short of breath when he sits upright and less short of breath when he lies down flat. He does feel short of breath when he exerts himself. He denies any fever or chills. Physical exam demonstrates mild anasarca of the groin and genitals, no subcutaneous crepitus or tenderness suggestive of Fourni. patient demonstrates mild tachypnea and hypoxemia in the high 70s to low 80s. We will apply supplemental oxygen, diuresis, evaluate for signs of urinary obstruction, concern is for congestive heart failure, less likely pulmonary embolism or STEMI. We will monitor closely and reassess. 12:21 PM Laboratory work-up has returned, notably elevated D-dimer, proBNP high, hematocrit is now 57%. Hemoglobin stable. VBG demonstrates elevated PCO2 with normal pH. Electrolytes stable, renal function stable. Conjugated bilirubin and bilirubin is elevated, which is higher than normal, but he is also chronically high. CTA was ordered and shows no evidence of pulmonary embolism. Minimal pleural effusion and atelectasis. Troponin normal. Bedside ultrasound demonstrated a challenging exam, however right ventricle was notably dilated, mild dilatation of left ventricle but ejection fraction appeared relatively benign. Review of prior echo demonstrates good ejection fraction on assessment 2 months ago. Patient does have notable response to breathing treatments and oxygenation did notably increased to the 90s, however he is now declined back to the high 80s on 2 L. We will give Solu-Medrol and another breathing treatment. Lasix has been given at 20 mg, and he is urinating. I do feel that the patient has a mixed clinical picture of congestive heart failure and anasarca, as well as COPD exacerbation. Will recommend inpatient admission for treatment of this. Discussed the case with the hospitalist, he agrees with the assessment and plan. I have extensively reviewed the treatment plan with the patient. I have addressed all patient concerns at this time. I have also discussed the plan with the admitting physician and they agree with the current assessment and plan and have agreed to assume responsibility for the patient. All parties demonstrate verbal understanding and agreement with our assessment and plan at this time. The documentation in this chart was dictated using Lessno dictation software. Please excuse any dictation errors. FINDINGS: Tracheobronchial tree: Patent where visualized. Pulmonary parenchyma: No consolidation or dominant measurable mass. No architectural distortion. Pulmonary Arteries: No evidence of filling defect to suggest pulmonary emboli. Mediastinum and Dayan: No dominant adenopathy or fluid collection. The esophagus is unremarkable. Visualized thyroid gland: Unremarkable. Pleura: There is a small left pleural effusion. No right pleural effusion. Heart: Mild cardiomegaly. Mild coronary artery calcification is present. No pericardial effusion. Aorta: Thoracic aorta non-dilated. No evidence of dissection. Atherosclerosis. Upper abdomen: There is abdominal ascites present. Soft tissues: Gynecomastia. Abdominal wall and chest wall edema. Bones: Within normal limits for the patient's age. IMPRESSION: 1. No evidence of pulmonary embolism, thoracic aortic dissection or aneurysm. 2. Small left pleural effusion. 3. Abdominal ascites and mild abdominal wall edema. 4. Findings were discussed with Dr. Hernández at 11:45 a.m. on 04/27/2023. HPI General Date/Time Provider Initiated Documentation: 04/27/23 09:09. HPI Narrative: 62-year-old male with a past medical history of polycythemia, hypertension, reactive airway disease, edema, alcohol abuse, presents today for evaluation of shortness of breath, edema. Patient is not overly clear in his past medical history, and recommends repeatedly that we refer to his medical file. He states that in the past January 2023 he had edema, was admitted, diuresed, subsequently discharged. He had no insurance at that time and declined additional work-up. He was discharged home and has been taking Lasix since then. He does miss doses occasionally. Additionally he was prescribed outpatient inhalers, however because of the cost he did not get these and ordered them from [facility], but unfortunately they have not arrived. Over the last 3 to 5 days he has had mild to moderate swelling in his lower extremities, as well as his groin area. He also has had notable difficulty urinating. He denies any significant change in his diet. He denies any chest pain or abdominal pain otherwise. He does admit to shortness of breath, as well as mild cough. He denies vomiting or diarrhea. No dysuria. No other complaints at this time. He feels more short of breath when he sits upright and less short of breath when he lies down flat. He does feel short of breath when he exerts himself. He denies any fever or chills. Related Data Home Medications Medication Instructions Recorded Confirmed aspirin 81 mg chewable tablet 81 mg PO DAILY #0 tabs 02/11/23 (Children's Aspirin) doxycycline hyclate 100 mg capsule 100 mg PO BID #12 caps 02/11/23 furosemide 20 mg tablet (Lasix) 40 mg PO Q OTHER DAY #60 tabs 02/11/23 magnesium oxide 400 mg (241.3 mg 400 mg PO BID #0 tabs 02/11/23 magnesium) tablet spironolactone 50 mg tablet 50 mg PO DAILY #30 tabs 02/11/23 thiamine mononitrate (vit B1) 100 100 mg PO QAM #0 tabs 02/11/23 mg tablet (Vitamin B-1 (mononitrate)) Previous Rx's Medication Instructions Recorded aspirin 81 mg chewable tablet 81 mg PO DAILY #0 tabs 02/11/23 (Children's Aspirin) doxycycline hyclate 100 mg capsule 100 mg PO BID #12 caps 02/11/23 furosemide 20 mg tablet (Lasix) 40 mg PO Q OTHER DAY #60 tabs 02/11/23 magnesium oxide 400 mg (241.3 mg 400 mg PO BID #0 tabs 02/11/23 magnesium) tablet spironolactone 50 mg tablet 50 mg PO DAILY #30 tabs 02/11/23 thiamine mononitrate (vit B1) 100 100 mg PO QAM #0 tabs 02/11/23 mg tablet (Vitamin B-1 (mononitrate)) Allergies Allergy/AdvReac Type Severity Reaction Status Date / Time No Known Allergies Allergy Unverified 02/09/23 10:56 General Stated Complaint: SOB ESTER: 2 Review of Systems All systems reviewed & are unremarkable except as noted in HPI and below PFSH All Active Problems (Updated 04/27/23 @ 12:26 by Ant Hernández DO) COPD exacerbation (Acute) Hypoxemia (Acute) Pulmonary hypertension (Acute) Polycythemia (Acute) Hyperbilirubinemia (Acute) Elevated BP without diagnosis of hypertension (Acute) Alcohol use (Acute) Tobacco abuse disorder (Acute) Anasarca (Acute) Social History Smoking/Tobacco Use Status: Current every day Tobacco Type: cigarettes Smoking risk assessment performed?: Yes Alcohol Intake: current Alcohol Intake frequency: 0-2 drinks per day Alcohol type: hard liquor Drug use: Never Substance use type: does not use Do you feel safe at home: Yes Do you feel safe in your relationship?: Yes Exam Narrative Exam Narrative: 1.Const: Well-nourished, Well-developed, appearing stated age 2.Eyes: PERRL, no conjunctival injection, and symmetrical lids. 3.ENT: Atraumatic external nose and ears. Moist MM. Neck: Symmetric, trachea midline, No thyromegaly. 4.CVS: +S1/S2, No murmurs or gallops. Peripheral pulses 2+ and equal in all extremities. Brisk capillary refill in all extremities. 5.RESP: Unlabored respiratory effort. Mild rhonchi and wheezes scattered throughout 6.GI: Soft, Nontender/Nondistended, No hepatosplenomegaly. No guarding or rebound. Mild anasarca noted around the genital region and pelvic region. No focal abdominal tenderness. 7.MSK: Normocephalic/Atraumatic, Extremities w/o deformity or ttp No cyanosis or clubbing, Normal movement of all extremities. Mild +2 pitting edema in the lower extremities bilaterally. 8.Skin: Warm, Dry. No rashes or lesions. 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 Sensation grossly intact, no focal neurologic deficits. 10.Psych: (AAO) x3. Appropriate mood and affect Course Vital Signs Vital signs: Vital Signs Temperature 36.8 C 04/27/23 09:11 Pulse 118 H 04/27/23 09:11 Respiratory Rate 20 04/27/23 09:11 Blood Pressure 155/98 H 04/27/23 09:11 Pulse Oximetry 76 L 04/27/23 09:11 Temperature 36.8 C 04/27/23 09:11 Pulse 118 H 04/27/23 09:11 Respiratory Rate 20 04/27/23 09:11 Blood Pressure 155/98 H 04/27/23 09:11 Blood Pressure Position Supine 04/27/23 09:11 Pulse Oximetry 76 L 04/27/23 09:11 Oxygen Delivery Method Room Air 04/27/23 09:11 Oxygen Flow Rate 0 04/27/23 09:11 POCUS Exam (ED) Limited Cardiac Exam DATE OF EXAM: 04/27/23 TIME OF EXAM: 11:26 PROVIDER THAT PERFORMED THE STUDY: Ant Hernández IS THIS A REPEAT EXAM DURING THIS ENCOUNTER: no REASON FOR EXAM: Dyspnea VISUALIZED STRUCTURES: Left ventricle and Right ventricle VIEW OBTAINED: Parasternal long-axis PERTINENT FINDINGS/IMPRESSION: LV dysfunction and RV dysfunction DIFFERENTIAL DIAGNOSES: Technically challenging exam, however there does appear to be mild left and right ventricular dysfunction. No pericardial tamponade. Exam complete
[2023-04-27 09:50] LABS: BE (Venous) 14 mmol/L (-2-3); HCO3 (Venous) 40 mmol/L (23-28); O2 Sat (Venous) 69 %; TCO2 (Venous) 34 mmol/L (24-29); pH (Venous) 7.36 (7.31-7.41); pO2 (Venous) 39 mmHg
[2023-04-27] MEDS: Furosemide 20 MG/2 ML VIAL IVP ×2 (09:50→13:16)
[2023-04-27 09:51] LABS: Abs Immature Grans 0.05 10^3/uL (0.0-0.06); Absolute Basophil Count 0.06 10^3/uL (0.0-0.2); Absolute Eosinophil Count 0.01 10^3/uL (0.0-0.7); Absolute Lymphocyte Count 0.75 10^3/uL (1.2-3.4); Absolute Monocyte Count 1.02 10^3/uL (0.1-0.8); Absolute Neutrophil Count 6.14 10^3/uL (1.2-6.7); Basophils % 0.7; Eosinophils % 0.1; HGB 18.6 g/dL (13.5-17.5); Immature Grans % 0.6; Lymphocytes % 9.3; MCHC 32.6 % (32.0-36.0); MCV 98 fL (80-95); MPV 9.9 fL (8.0-11.0); Monocytes % 12.7; Neutrophils % 76.6; Nucleated RBC 0.2 % (0.0-0.3); Platelet Count 145 10^3/uL (130-400); RBC 5.82 10^6/uL (4.36-5.78); RDW 15.4 % (11.8-14.1); RDW-SD 55.1 fL; WBC 8.03 10^3/uL (4.4-10.8)
[2023-04-27] MEDS: Albuterol/Ipratropium 3 ML UPD VIAL UPD ×2 (09:51→13:16)
[2023-04-27 09:52] LABS: pCO2 (Venous) 71 mmHg (41-51)
[2023-04-27 09:57] LABS: HCT 57.1 % (40.0-50.0)
--- NOTE | 2023-04-27 10:08 | DI.RAD_ITS ---
Exam(s) XR PORTABLE CHEST AP EXAM: XR PORTABLE CHEST AP CLINICAL HISTORY: sob TECHNIQUE: 2D digital imaging was performed of the chest. One image was obtained. An AP view was ob tained. COMPARISON: CR XR CHEST 2V PA LATERAL from 02/09/2023 FINDINGS: MEDIASTINUM: Normal. HEART: Normal. PULMONARY VASCULATURE: Normal. LUNGS: Clear. PLEURAL SPACE: No pleural effusion or pneumothorax. BONE:Within normal limits for the patient's age. OTHER FINDINGS:Normal. IMPRESSION: No acute pulmonary findings. DATA REPOSITORY: RADIATION DOSE DELIVERED:
[2023-04-27 10:16] LABS: ALT 11 U/L (16-63); AST 31 U/L (15-37); Albumin 3.5 g/dL (3.4-5.0); Alkaline Phosphatase 85 U/L (46-116); Anion Gap 5.6 mmol/L (3-11); BUN 15 mg/dL (7-18); Bilirubin, Total 4.3 mg/dL (0.2-1.0); CO2 38.4 mmol/L (21.0-32.0); Calcium 8.9 mg/dL (8.5-10.1); Chloride 90 mmol/L (98-107); Estimated GFR 84.57 (mL/min/1.73m2); Glucose 89 mg/dL (74-106); NT-proBNP 6632 pg/mL (<300); Sodium 134 mmol/L (136-145); Total Protein 7.5 g/dL (6.4-8.2); Troponin I < 50 ng/L (<or=60)
[2023-04-27 10:18] LABS: ETHANOL BLOOD < 3.0 mg/dL (<10)
[2023-04-27 10:29] LABS: Bilirubin Negative (Negative); Blood Negative (Negative); Clarity Clear (Clear); Glucose Negative (Negative); Ketones Negative (Negative); Leukocyte Esterase Negative (Negative); Nitrite Negative (Negative)
[2023-04-27 10:38] LABS: Bilirubin, Direct 1.4 mg/dL (0.0-0.2)
[2023-04-27 10:49] LABS: Bacteria Negative HPF (Negative); C & S Indicated? No; Crystals Negative HPF (Negative); Epithelial Cells Rare HPF (Negative); Mucus Negative (Negative); Other Cells Few Renal (Negative); WBC 0-2 HPF (0-5)
[2023-04-27 10:50] LABS: Casts 0-2 Hyaline LPF (Negative)
[2023-04-27 10:54] LABS: D-Dimer 1907 ng/mlFEU (<500)
--- NOTE | 2023-04-27 11:00 | DI.CT_ITS ---
Exam(s) CT CHEST PE CTA EXAM: CT CHEST PE CTA CLINICAL HISTORY: cp, sob, elevated dimer r/o pe. TECHNIQUE: Imaging Protocol: Axial CT angiography was performed with multi-slice acquisition and mu lti-planar and/or 3D reconstructions. CONTRAST MATERIAL: Intravenous: Omnipaque 350 contrast volume:100 mL COMPARISON: CR XR PORTABLE CHEST AP from 04/27/2023 FINDINGS: Tracheobronchial tree: Patent where visualized. Pulmonary parenchyma: No consolidation or dominant measurable mass. No architectural distortion. Pulmonary Arteries: No evidence of filling defect to suggest pulmonary emboli. Mediastinum and Dayan: No dominant adenopathy or fluid collection. The esophagus is unremarkable. Visualized thyroid gland: Unremarkable. Pleura: There is a small left pleural effusion. No right pleural effusion. Heart: Mild cardiomegaly. Mild coronary artery calcification is present. No pericardial effusion. Aorta: Thoracic aorta non-dilated. No evidence of dissection. Atherosclerosis. Upper abdomen: There is abdominal ascites present. Soft tissues: Gynecomastia. Abdominal wall and chest wall edema. Bones: Within normal limits for the patient's age. IMPRESSION: 1. No evidence of pulmonary embolism, thoracic aortic dissection or aneurysm. 2. Small left pleural effusion. 3. Abdominal ascites and mild abdominal wall edema. 4. Findings were discussed with Dr. Hernández at 11:45 a.m. on 04/27/2023. RADIATION DOSE DELIVERED: 448.95mGy.cm Total DLP DATA REPOSITORY: All CT scans at this facility are submitted to the National Radiology Data Registry (NRDR) Dose Index Registry (DIR) with the [employer] (A[employer]). RADIATION OPTIMIZATION: All CT scans at this facility use at least one of these dose optimization te chniques: automated exposure control; mA and/or kV adjustment per patient size (includes targeted exa ms where dose is matched to clinical indication); or iterative reconstruction.
[2023-04-27] MEDS: Normal Saline - Diluent 50 ML VIAL IJ (11:07)
[2023-04-27] MEDS: Omnipaque 350 MG/ML 500 ML BTL-Imaging package IJ (11:07)
[2023-04-27] MEDS: Normal Saline Flush 10 ML SYR IVP (11:08)
--- NOTE | 2023-04-27 12:27 | HPE_ITS ---
Date of service: 04/27/23 Time of Service: 12:27 Assessment and Plan Assessment and plan (1) Anasarca: Status: Acute Assessment and plan: will admit to med/surg for diuresis. work up in ED is non-ischemic, will cycle troponin. Echocardiogram from February 10, 2023: Normal left ventricular wall thickness and chamber size.? Ejection fraction appears within the range of normal approximately 55% Right ventricle is severely dilated.? There is paradoxic septal motion, evidence of right ventricular volume overload.? Diastolic septal flattening suggests right ventricular pressure overload The right atrium is severely dilated.? Left atrial size is normal Aortic valve is trileaflet without stenosis or regurgitation Structurally normal tricuspid valve with moderate to severe regurgitation.? Estimated right ventricular systolic pressure is 58 mmHg Lasix 20mg IV given in ED and will continue with lasix drip with close monit oring of I/O and daily weights. Continue spironolactone 50mg daily. Elevate legs with michael wraps or TEDS for compression. low sodium diet. (2) Tobacco abuse disorder: Status: Acute Assessment and plan: nicotine replacement while hospitalized Encourage ongoing cessation. (3) Alcohol use: Status: Acute Assessment and plan: He endorses 1-2 drinks of vodka daily. LFTs ok. Bilirubin mildly elevated. Monitor withdrawal symptoms and begin CIWA scoring only if necessary. Cont thiamine supplementation. (4) Hyperbilirubinemia: Status: Acute Assessment and plan: Total bili up to 4.3 Monitor. No abd pain/jaundice. (5) Polycythemia: Status: Acute Assessment and plan: thought to be Smoking related (chronic CO exposure from inhaled cigarette smoke). He is weaning off cigarettes. (6) Discharge planning issues: Status: Acute Assessment and plan: from previous hospitalization: Consider costs of medications prescribed; self-pay. discharged with PCP group designated on the day of admission; will see if he followed up [facility] was to reach out and discussion any medical insurance options that might be available to him, case management will be following. admission discussed with DR Howard. History of Present Illness History of Present Illness Chief Complaint: shortness of breath, edema Review of Systems All systems reviewed & are unremarkable except as noted in HPI and below PFSH All Active Problems (Updated 04/27/23 @ 12:34 by Shea Zacarias NP) Discharge planning issues (Acute) COPD exacerbation (Acute) Hypoxemia (Acute) Pulmonary hypertension (Acute) Polycythemia (Acute) Hyperbilirubinemia (Acute) Elevated BP without diagnosis of hypertension (Acute) Alcohol use (Acute) Tobacco abuse disorder (Acute) Anasarca (Acute) Social History Smoking/Tobacco Use Status: Current every day Tobacco Type: cigarettes Smoking risk assessment performed?: Yes Alcohol Intake: current Alcohol Intake frequency: 0-2 drinks per day Alcohol type: hard liquor Drug use: Never Substance use type: does not use Do you feel safe at home: Yes Do you feel safe in your relationship?: Yes Meds Allergies and Home Medications Allergies Allergy/AdvReac Type Severity Reaction Status Date / Time No Known Allergies Allergy Unverified 02/09/23 10:56 Home Medications Medication Instructions Recorded Confirmed Type aspirin 81 mg chewable tablet 81 mg PO DAILY #0 tabs 02/11/23 04/27/23 Rx (Children's Aspirin) doxycycline hyclate 100 mg capsule 100 mg PO BID #12 caps 02/11/23 Rx furosemide 20 mg tablet (Lasix) 40 mg PO Q OTHER DAY #60 tabs 02/11/23 04/27/23 Rx magnesium oxide 400 mg (241.3 mg 400 mg PO BID #0 tabs 02/11/23 04/27/23 Rx magnesium) tablet spironolactone 50 mg tablet 50 mg PO DAILY #30 tabs 02/11/23 Rx thiamine mononitrate (vit B1) 100 100 mg PO QAM #0 tabs 02/11/23 Rx mg tablet (Vitamin B-1 (mononitrate)) Exam Const General: cooperative and no acute distress Nutritional Appearance: overweight Orientation: alert, awake and oriented x3 HENWA Head: normal to inspection, normocephalic and atraumatic Mouth: oral mucosae normal Neck Neck: no JVD Chest Chest: normal inspection of the chest Resp Auscultation: wheezes scattered wheezes Cardio Rate: regular rate Rhythm: regular rhythm GI Inspection: normal to inspection Palpation: soft Auscultation: normal bowel sounds Skin General skin exam: dry skin and other (Chronic discoloration consistent with venous stasis bilateral lower) Neuro General: patient alert, patient awake, patient oriented x3 and no focal motor deficits Extrem General: edema Laterality: bilateral (lower up to waist) Results Labs 04/28/23 06:08 04/28/23 07:05 Labs: Laboratory Results - last 24 hr 04/27/23 04/27/23 04/27/23 09:20 09:22 09:40 WBC 8.03 RBC 5.82 H Hgb 18.6 H Hct 57.1 H* MCV 98 H MCH 32.0 MCHC 32.6 RDW 15.4 H Plt Count 145 MPV 9.9 Immature Gran % 0.6 Neutrophils % 76.6 Lymphocytes % 9.3 Monocytes % 12.7 Eosinophils % 0.1 Basophils % 0.7 Nucleated RBC % 0.2 Absolute Neutrophils 6.14 Absolute Lymphocytes 0.75 L Absolute Monocytes 1.02 H Absolute Eosinophils 0.01 Absolute Basophils 0.06 D-Dimer VBG pH VBG pCO2 VBG pO2 VBG HCO3 VBG Total CO2 VBG O2 Saturation VBG Base Excess Sodium 134 L Potassium 4.0 Chloride 90 L Carbon Dioxide 38.4 H Anion Gap 5.6 BUN 15 Creatinine 1.0 Est GFR (CKD-EPI 2020) 84.57 Glucose 89 Calcium 8.9 Total Bilirubin 4.3 H Conjugated Bilirubin AST 31 ALT 11 L Alkaline Phosphatase 85 Troponin I < 50 NT-Pro-B Natriuret Pep 6632 H Total Protein 7.5 Albumin 3.5 Urine Color Urine Clarity Urine pH Ur Specific [place] Urine Protein Urine Ketones Urine Blood Urine Nitrite Urine Bilirubin Urine Urobilinogen Ur Leukocyte Esterase Urine RBC Urine WBC Ur Epithelial Cells Urine Crystals Urine Bacteria Urine Casts Urine Mucus Urine Other Ur Culture Indicated? Urine Glucose Ethyl Alcohol Cancelled < 3.0 04/27/23 04/27/23 04/27/23 09:40 09:40 09:42 WBC RBC Hgb Hct MCV MCH MCHC RDW Plt Count MPV Immature Gran % Neutrophils % Lymphocytes % Monocytes % Eosinophils % Basophils % Nucleated RBC % Absolute Neutrophils Absolute Lymphocytes Absolute Monocytes Absolute Eosinophils Absolute Basophils D-Dimer Cancelled VBG pH 7.36 VBG pCO2 71 H* VBG pO2 39 VBG HCO3 40 H VBG Total CO2 34 H VBG O2 Saturation 69 VBG Base Excess 14 H Sodium Potassium Chloride Carbon Dioxide Anion Gap BUN Creatinine Est GFR (CKD-EPI 2020) Glucose Calcium Total Bilirubin Conjugated Bilirubin 1.4 H AST ALT Alkaline Phosphatase Troponin I NT-Pro-B Natriuret Pep Total Protein Albumin Urine Color Urine Clarity Urine pH Ur Specific [place] Urine Protein Urine Ketones Urine Blood Urine Nitrite Urine Bilirubin Urine Urobilinogen Ur Leukocyte Esterase Urine RBC Urine WBC Ur Epithelial Cells Urine Crystals Urine Bacteria Urine Casts Urine Mucus Urine Other Ur Culture Indicated? Urine Glucose Ethyl Alcohol 04/27/23 04/27/23 10:07 10:15 WBC RBC Hgb Hct MCV MCH MCHC RDW Plt Count MPV Immature Gran % Neutrophils % Lymphocytes % Monocytes % Eosinophils % Basophils % Nucleated RBC % Absolute Neutrophils Absolute Lymphocytes Absolute Monocytes Absolute Eosinophils Absolute Basophils D-Dimer 1907 H VBG pH VBG pCO2 VBG pO2 VBG HCO3 VBG Total CO2 VBG O2 Saturation VBG Base Excess Sodium Potassium Chloride Carbon Dioxide Anion Gap BUN Creatinine Est GFR (CKD-EPI 2020) Glucose Calcium Total Bilirubin Conjugated Bilirubin AST ALT Alkaline Phosphatase Troponin I NT-Pro-B Natriuret Pep Total Protein Albumin Urine Color Yellow Urine Clarity Clear Urine pH 6.0 Ur Specific [place] 1.010 Urine Protein 30 H Urine Ketones Negative Urine Blood Negative Urine Nitrite Negative Urine Bilirubin Negative Urine Urobilinogen 2.0 H Ur Leukocyte Esterase Negative Urine RBC 3-5 H Urine WBC 0-2 Ur Epithelial Cells Rare Urine Crystals Negative Urine Bacteria Negative Urine Casts 0-2 Hyaline Urine Mucus Negative Urine Other Few Renal Ur Culture Indicated? No Urine Glucose Negative Ethyl Alcohol Last Vital Signs Temp 36.8 C 04/27/23 09:11 Pulse 113 H 04/27/23 11:31 Resp 24 04/27/23 11:31 BP 145/88 H 04/27/23 11:31 Pulse Ox 96 04/27/23 11:31 PAWSS Have you Been Recently Intoxicated or Drunk Within the Last 30 days?: No Have you Ever Experienced Previous Episodes of Alcohol Withdrawal?: No Have you ever Experienced Withdrawal Seizures?: No Have you ever Experienced Delirium Tremens(DT)s?: No Have you ever undergone Alcohol Rehabilitation Treatment (i.e, inpt ot outpatient treatment programs)?: No Have you ever Experienced Blackouts?: No Have you ever Combined Alcohol with other Downers within the last 90 days?: No Have you ever Combined Alcohol with any other Substance of Abuse during the last 90 days?: No Positive Blood Alcohol level on Presentation? [PCS.BAL]: No Evidence of Increased Autonomic Activity (i.e. HR>120, tremor, sweating, agitation, nausea)?: No Result: 0 Time Spent Time spent with Patient: 40-54 minutes Time was spent: preparing to see the patient(eg.review tests), obtaining and/or reviewing separately otained hiistory, ordering medications,tests, procedures, indepentently interpreting results and counseling the patient
[2023-04-27] MEDS: methylPREDNISolone SUCC 125 MG VIAL IVP (13:16)
[2023-04-27 13:36] LABS: Troponin I < 50 ng/L (<or=60)
--- NOTE | 2023-04-27 15:47 | CHAPLAIN ---
I had a brief visit with Eddie today while he was in bed. He said he is feeling better. He's waiting for someone from Security to come get his car keys, go to his car for him and bring his laptop to him.
[2023-04-27] MEDS: Enoxaparin 40 MG/0.4 ML SYR SC (17:37)
[2023-04-28] VITALS (10 sets, daily range): BP systolic 105–115; BP diastolic 68–77; PULSE 103–113; RESP 2–22; TEMP 36.4–36.9; O2SAT 88–97
[2023-04-28 06:45] LABS: Abs Immature Grans 0.02 10^3/uL (0.0-0.06); Absolute Basophil Count 0.01 10^3/uL (0.0-0.2); Absolute Eosinophil Count 0.01 10^3/uL (0.0-0.7); Absolute Lymphocyte Count 0.25 10^3/uL (1.2-3.4); Absolute Monocyte Count 0.39 10^3/uL (0.1-0.8); Absolute Neutrophil Count 5.25 10^3/uL (1.2-6.7); Basophils % 0.2; Eosinophils % 0.2; HCT 55.7 % (40.0-50.0); Immature Grans % 0.3; Lymphocytes % 4.2; MCH 32.3 pg (27.0-33.0); MCHC 32.3 % (32.0-36.0); MCV 100 fL (80-95); MPV 10.7 fL (8.0-11.0); Monocytes % 6.6; Neutrophils % 88.5; Platelet Count 149 10^3/uL (130-400); RBC 5.58 10^6/uL (4.36-5.78); RDW 15.2 % (11.8-14.1); RDW-SD 56.6 fL; WBC 5.93 10^3/uL (4.4-10.8)
[2023-04-28 07:32] LABS: ALT 14 U/L (16-63); AST 24 U/L (15-37); Albumin 3.1 g/dL (3.4-5.0); Alkaline Phosphatase 73 U/L (46-116); Anion Gap 1.5 mmol/L (3-11); BUN 16 mg/dL (7-18); Bilirubin, Total 2.9 mg/dL (0.2-1.0); CO2 43.5 mmol/L (21.0-32.0); CREATININE 1.1 mg/dL (0.70-1.30); Calcium 8.4 mg/dL (8.5-10.1); Chloride 94 mmol/L (98-107); Estimated GFR 75.43 (mL/min/1.73m2); Glucose 154 mg/dL (74-106); Potassium 3.8 mmol/L (3.5-5.1); Sodium 139 mmol/L (136-145); Total Protein 6.9 g/dL (6.4-8.2)
[2023-04-28] MEDS: Albuterol/Ipratropium 3 ML UPD VIAL UPD ×4 (07:51→20:26)
[2023-04-28] MEDS: Aspirin 81 MG CHEW PO (08:17)
[2023-04-28] MEDS: Spironolactone 50 MG TAB PO (08:17)
[2023-04-28] MEDS: predniSONE 20 MG TAB 40 MG PO (08:17)
[2023-04-28] MEDS: Thiamine 100 MG TAB PO (08:17)
--- NOTE | 2023-04-28 08:36 | PDOC.CMIN ---
Date of service: 04/28/23 Care Management Initial Assmt Initial Assessment REASON FOR HOSPITALIZATION:: Anasarca PREVIOUS FUNCTIONAL STATUS/SOCIAL/FAMILY SUPPORTS:: Eddie Francisco lives in [facility], [facility]. He has supportive neighbors and friend in the area and no children or local family. 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 He drives, owns a care, house and is fully independent at baseline. CURRENT FUNCTIONAL STATUS:: Eddie was lying in bed working on his computer when CM met with him. Per Eddie, he is working with a CHW from [employer], to see if he is eligible for health insurance. He identifies that they are waiting for him to send back a financial form, however he is reluctant to fill it out because his income as a check writer salesperson, fluctuates from month to month. CM contacted [employer] at his request. CHW is planning on reaching out to patient today. ADVANCE DIRECTIVES:: None on file. Has patient been provided with info about the portal/API?: Yes Did the patient sign up for the portal?: No CODE STATUS:: Full Code INSURANCE COVERAGE / FINANCIAL ISSUES:: Self Pay CURRENT HOME/COMMUNITY SERVICES/EQUIPMENT:: [facility] PRIMARY CARE PHYSICIAN:: Norma Ba POTENTIAL DISCHARGE NEEDS:: Evaluations for further needs, resumption of insurance support through [employer], PCP follow up PATIENT/FAMILY EDUCATION NEEDS:: Review discharge instructions and limitations, discussion of self care needs including ask me three. TRANSPORTATION:: Via private vehicle. PLAN:: Anticipate Nolan will return home when medically cleared. He will follow up with the information director provider, coordinated by MARIA ALEJANDRA, and his discharge plan of care. CM will continue to follow. PFSH All Active Problems (Updated 04/27/23 @ 12:34 by Shea Zacarias NP) Discharge planning issues (Acute) COPD exacerbation (Acute) Hypoxemia (Acute) Pulmonary hypertension (Acute) Polycythemia (Acute) Hyperbilirubinemia (Acute) Elevated BP without diagnosis of hypertension (Acute) Alcohol use (Acute) Tobacco abuse disorder (Acute) Anasarca (Acute) Social History Smoking/Tobacco Use Status: Current every day Tobacco Type: cigarettes Smoking risk assessment performed?: Yes Alcohol Intake: current Alcohol Intake frequency: 0-2 drinks per day Alcohol type: hard liquor Drug use: Never Substance use type: does not use Do you feel safe at home: Yes Do you feel safe in your relationship?: Yes
--- NOTE | 2023-04-28 10:53 | W.PM.PROGNOT ---
Date of Service Date of service: 04/28/23 Time of Service: 10:53 Assessment and Plan Assessment and plan (1) Constipation: Status: Acute Assessment and plan: added mag citrate at his request (2) Anasarca: Status: Acute Assessment and plan: continue diuresis, IV lasix drip one more day. work up in ED is non-ischemic, serial troponin negative. Echocardiogram from February 10, 2023: Normal left ventricular wall thickness and chamber size.? Ejection fraction appears within the range of normal approximately 55% Right ventricle is severely dilated.? There is paradoxic septal motion, evidence of right ventricular volume overload.? Diastolic septal flattening suggests right ventricular pressure overload The right atrium is severely dilated.? Left atrial size is normal Aortic valve is trileaflet without stenosis or regurgitation Structurally normal tricuspid valve with moderate to severe regurgitation.? Estimated right ventricular systolic pressure is 58 mmHg continue monitoring of I/O and daily weights. Continue spironolactone 50mg daily. Elevate legs with michael wraps or TEDS for compression. will likely switch to bolus lasix tomorrow. low sodium diet. (3) Tobacco abuse disorder: Status: Acute Assessment and plan: nicotine replacement while hospitalized adding nicotrol inhaler at his request Encourage ongoing cessation. (4) Alcohol use: Status: Acute Assessment and plan: He endorses 1-2 drinks of vodka daily. BILI elevated but improving Monitor withdrawal symptoms and begin CIWA scoring only if necessary. no signs of withdrawal yet Cont thiamine supplementation. (5) Hyperbilirubinemia: Status: Acute Assessment and plan: Total bili up to 4.3 Monitor. No abd pain/jaundice. (6) Polycythemia: Status: Acute Assessment and plan: thought to be Smoking related (chronic CO exposure from inhaled cigarette smoke). He is weaning off cigarettes. (7) Discharge planning issues: Status: Acute Assessment and plan: from previous hospitalization: Consider costs of medications prescribed; self-pay. is established with local pcp now case management will be following. discussed with DR Howard. Subjective Subjective Patient reports: no new complaints, feels better, tolerating liquids well, tolerating a regular diet, no bowel movement and afebrile; denies nausea, vomiting or shortness of breath Interval history since last seen: still has swelling but improving, no bowel movement, requesting mag citrate. tovar draining clear urine Exam Const General: cooperative and no acute distress Nutritional Appearance: overweight Orientation: alert, awake and oriented x3 HENMT Head: normal to inspection, normocephalic and atraumatic Mouth: oral mucosae normal Neck Neck: no JVD Chest Chest: normal inspection of the chest Resp Auscultation: wheezes scattered wheezes Cardio Rate: regular rate Rhythm: regular rhythm GI Inspection: normal to inspection Palpation: soft Auscultation: normal bowel sounds Skin General skin exam: dry skin and other (Chronic discoloration consistent with venous stasis bilateral lower) Neuro General: patient alert, patient awake, patient oriented x3 and no focal motor deficits Extrem General: edema Laterality: bilateral (lower up to waist) Objective Last Vital Signs Temp 36.4 C L 04/28/23 06:32 Pulse 104 H 04/28/23 07:51 Resp 18 04/28/23 07:51 BP 109/77 04/28/23 06:32 Pulse Ox 97 04/28/23 08:01 Laboratory Results - last 24 hr 04/27/23 04/27/23 04/27/23 10:15 12:35 16:00 WBC RBC Hgb Hct MCV MCH MCHC RDW Plt Count MPV Immature Gran % Neutrophils % Lymphocytes % Monocytes % Eosinophils % Basophils % Nucleated RBC % Absolute Neutrophils Absolute Lymphocytes Absolute Monocytes Absolute Eosinophils Absolute Basophils D-Dimer 1907 H Sodium Potassium Chloride Carbon Dioxide Anion Gap BUN Creatinine Est GFR (CKD-EPI 2020) Glucose Calcium Total Bilirubin AST ALT Alkaline Phosphatase Troponin I < 50 Cancelled Total Protein Albumin 04/28/23 04/28/23 04/28/23 06:08 06:08 07:05 WBC 5.93 RBC 5.58 Hgb 18.0 H Hct 55.7 H MCV 100 H MCH 32.3 MCHC 32.3 RDW 15.2 H Plt Count 149 MPV 10.7 Immature Gran % 0.3 Neutrophils % 88.5 Lymphocytes % 4.2 Monocytes % 6.6 Eosinophils % 0.2 Basophils % 0.2 Nucleated RBC % 0.0 Absolute Neutrophils 5.25 Absolute Lymphocytes 0.25 L Absolute Monocytes 0.39 Absolute Eosinophils 0.01 Absolute Basophils 0.01 D-Dimer Sodium Cancelled 139 Potassium Cancelled 3.8 Chloride Cancelled 94 L Carbon Dioxide Cancelled 43.5 H Anion Gap Cancelled 1.5 L BUN Cancelled 16 Creatinine Cancelled 1.1 Est GFR (CKD-EPI 2020) Cancelled 75.43 Glucose Cancelled 154 H Calcium Cancelled 8.4 L Total Bilirubin Cancelled 2.9 H AST Cancelled 24 ALT Cancelled 14 L Alkaline Phosphatase Cancelled 73 Troponin I Total Protein Cancelled 6.9 Albumin Cancelled 3.1 L PAWSS Have you Been Recently Intoxicated or Drunk Within the Last 30 days?: No Have you Ever Experienced Previous Episodes of Alcohol Withdrawal?: No Have you ever Experienced Withdrawal Seizures?: No Have you ever Experienced Delirium Tremens(DT)s?: No Have you ever undergone Alcohol Rehabilitation Treatment (i.e, inpt ot outpatient treatment programs)?: No Have you ever Experienced Blackouts?: No Have you ever Combined Alcohol with other Downers within the last 90 days?: No Have you ever Combined Alcohol with any other Substance of Abuse during the last 90 days?: No Positive Blood Alcohol level on Presentation? [PCS.BAL]: No Evidence of Increased Autonomic Activity (i.e. HR>120, tremor, sweating, agitation, nausea)?: No Result: 0 Time Spent with Patient Time Spent with Patient: 25-34 minutes Time was spent: preparing to see the patient(eg.review tests), obtaining and/or reviewing separately otained hiistory, ordering medications,tests, procedures, indepentently interpreting results and counseling the patient
--- NOTE | 2023-04-28 12:02 | NUR.NOTE ---
Nursing Solution Sales Senior Executive was asked to retrieve patient belongings from pts personal car parked in ED lot. Pt requests computer bag and go bag on the passenger seat and gave his car keys. Myself, along with [employer] officer Bill Michael, unlocked pts car, obtained the two bags that were requested, locked the car, and delivered them to patients room. [place] were also returned. Nursing Note:
[2023-04-28] MEDS: Enoxaparin 40 MG/0.4 ML SYR SC (17:21)
[2023-04-28] MEDS: Magnesium Citrate 300 ML BTL PO (20:26)
[2023-04-29] VITALS (11 sets, daily range): BP systolic 118–127; BP diastolic 72–86; PULSE 90–110; RESP 2–24; TEMP 36.5–37.2; O2SAT 80–97
[2023-04-29 06:45] LABS: Abs Immature Grans 0.03 10^3/uL (0.0-0.06); Absolute Basophil Count 0.02 10^3/uL (0.0-0.2); Absolute Eosinophil Count 0.01 10^3/uL (0.0-0.7); Absolute Lymphocyte Count 1.13 10^3/uL (1.2-3.4); Absolute Monocyte Count 1.25 10^3/uL (0.1-0.8); Basophils % 0.2; Eosinophils % 0.1; HCT 56.3 % (40.0-50.0); HGB 17.7 g/dL (13.5-17.5); Immature Grans % 0.3; Lymphocytes % 9.8; MCH 31.5 pg (27.0-33.0); MCHC 31.4 % (32.0-36.0); MCV 100 fL (80-95); Monocytes % 10.8; Neutrophils % 78.8; RBC 5.62 10^6/uL (4.36-5.78); RDW 15.1 % (11.8-14.1); RDW-SD 55.9 fL; WBC 11.57 10^3/uL (4.4-10.8)
[2023-04-29 06:59] LABS: BUN 18 mg/dL (7-18); CO2 > 45.0 mmol/L (21.0-32.0); Calcium 8.5 mg/dL (8.5-10.1); Chloride 91 mmol/L (98-107); Estimated GFR 84.57 (mL/min/1.73m2); Glucose 111 mg/dL (74-106); Potassium 4.4 mmol/L (3.5-5.1); Sodium 135 mmol/L (136-145)
[2023-04-29 07:16] LABS: Absolute Neutrophil Count 9.12 10^3/uL (1.2-6.7)
[2023-04-29 07:20] LABS: Diff Comment Diff Reviewed
[2023-04-29] MEDS: Albuterol/Ipratropium 3 ML UPD VIAL UPD ×3 (07:33→19:43)
[2023-04-29] MEDS: Spironolactone 50 MG TAB PO (08:05)
[2023-04-29] MEDS: Thiamine 100 MG TAB PO (08:05)
[2023-04-29] MEDS: Aspirin 81 MG CHEW PO (08:05)
[2023-04-29] MEDS: predniSONE 20 MG TAB 40 MG PO (08:05)
[2023-04-29] MEDS: guaiFENesin 600 MG TABCR PO ×2 (11:02→19:43)
--- NOTE | 2023-04-29 11:53 | PDOC.CMPRO ---
Date of service: 04/29/23 Time of Service: 11:53 Care Management Progress Note Progress Note Text Progress Note Text: S/O: Eddie was sitting up in bed when CM met with him. He is awake, pleasant and easy to engage in conversation. [facility] is working with pt to determine eligibility for Medicaid and patient assistance but first he needs to submit his financial information. Eddie shares that he would really like to smoke, but understands the no smoking policy. He going to try a nicotine inhaler, as discussed with Hospitalist. A: 62 year old male admitted to [facility] on 04/27/23 for Anasarca P: Nolan plans to return home when medically cleared by provider. He will follow up with his PCP, CHW at [facility] and his discharge plan of care. No new services are anticipated at this time. CM will continue? to follow.
[2023-04-29] MEDS: Enoxaparin 40 MG/0.4 ML SYR SC (17:59)
--- NOTE | 2023-04-29 18:08 | W.PM.PROGNOT ---
Date of Service Date of service: 04/29/23 Time of Service: 18:08 Assessment and Plan Assessment and plan (1) Constipation: Status: Resolved Assessment and plan: added mag citrate at his request which was effective (2) Anasarca: Status: Acute Assessment and plan: continue diuresis, IV lasix drip one more day. work up in ED is non-ischemic, serial troponin negative. Echocardiogram from February 10, 2023: Normal left ventricular wall thickness and chamber size.? Ejection fraction appears within the range of normal approximately 55% Right ventricle is severely dilated.? There is paradoxic septal motion, evidence of right ventricular volume overload.? Diastolic septal flattening suggests right ventricular pressure overload The right atrium is severely dilated.? Left atrial size is normal Aortic valve is trileaflet without stenosis or regurgitation Structurally normal tricuspid valve with moderate to severe regurgitation.? Estimated right ventricular systolic pressure is 58 mmHg continue monitoring of I/O and daily weights. Continue spironolactone 50mg daily. Elevate legs with michael wraps or TEDS for compression. will likely switch to bolus lasix tomorrow. low sodium diet. (3) Tobacco abuse disorder: Status: Acute Assessment and plan: nicotine replacement while hospitalized adding nicotrol inhaler at his request Encourage ongoing cessation. (4) Alcohol use: Status: Acute Assessment and plan: He endorses 1-2 drinks of vodka daily. BILI elevated but improving Monitor withdrawal symptoms and begin CIWA scoring only if necessary. no signs of withdrawal yet Cont thiamine supplementation. (5) Hyperbilirubinemia: Status: Acute Assessment and plan: Total bili up to 4.3 Monitor. No abd pain/jaundice. (6) Polycythemia: Status: Acute Assessment and plan: thought to be Smoking related (chronic CO exposure from inhaled cigarette smoke). He is weaning off cigarettes. (7) Discharge planning issues: Status: Acute Assessment and plan: from previous hospitalization: Consider costs of medications prescribed; self-pay. is established with local pcp now case management will be following. discussed with DR Howard. Subjective Subjective Patient reports: no new complaints, feels better, tolerating liquids well, tolerating a regular diet and bowel movement Exam Const General: cooperative and no acute distress Nutritional Appearance: overweight Orientation: alert, awake and oriented x3 HENMT Head: normal to inspection, normocephalic and atraumatic Mouth: oral mucosae normal Neck Neck: no JVD Chest Chest: normal inspection of the chest Resp Auscultation: wheezes scattered wheezes Cardio Rate: regular rate Rhythm: regular rhythm GI Inspection: normal to inspection Palpation: soft Auscultation: normal bowel sounds Skin General skin exam: dry skin and other (Chronic discoloration consistent with venous stasis bilateral lower) Neuro General: patient alert, patient awake, patient oriented x3 and no focal motor deficits Extrem General: edema Laterality: bilateral (lower up to waist) Objective Last Vital Signs Temp 37.2 C 04/29/23 15:06 Pulse 106 H 04/29/23 16:17 Resp 24 04/29/23 16:17 BP 118/72 04/29/23 15:06 Pulse Ox 92 04/29/23 16:51 Laboratory Results - last 24 hr 04/29/23 04/29/23 06:23 06:23 WBC 11.57 H RBC 5.62 Hgb 17.7 H Hct 56.3 H MCV 100 H MCH 31.5 MCHC 31.4 L RDW 15.1 H Plt Count MPV Immature Gran % 0.3 Neutrophils % 78.8 Lymphocytes % 9.8 Monocytes % 10.8 Eosinophils % 0.1 Basophils % 0.2 Nucleated RBC % 0.0 Absolute Neutrophils 9.12 H Absolute Lymphocytes 1.13 L Absolute Monocytes 1.25 H Absolute Eosinophils 0.01 Absolute Basophils 0.02 Sodium 135 L Potassium 4.4 Chloride 91 L Carbon Dioxide > 45.0 H Anion Gap BUN 18 Creatinine 1.0 Est GFR (CKD-EPI 2020) 84.57 Glucose 111 H Calcium 8.5 PAWSS Have you Been Recently Intoxicated or Drunk Within the Last 30 days?: No Have you Ever Experienced Previous Episodes of Alcohol Withdrawal?: No Have you ever Experienced Withdrawal Seizures?: No Have you ever Experienced Delirium Tremens(DT)s?: No Have you ever undergone Alcohol Rehabilitation Treatment (i.e, inpt ot outpatient treatment programs)?: No Have you ever Experienced Blackouts?: No Have you ever Combined Alcohol with other Downers within the last 90 days?: No Have you ever Combined Alcohol with any other Substance of Abuse during the last 90 days?: No Positive Blood Alcohol level on Presentation? [PCS.BAL]: No Evidence of Increased Autonomic Activity (i.e. HR>120, tremor, sweating, agitation, nausea)?: No Result: 0 Time Spent with Patient Time Spent with Patient: 25-34 minutes Time was spent: preparing to see the patient(eg.review tests), obtaining and/or reviewing separately otained hiistory, ordering medications,tests, procedures, indepentently interpreting results and counseling the patient
[2023-04-29 22:07] LABS: Bilirubin Negative (Negative); Blood Large (Negative); Clarity Sl Cloudy (Clear); Glucose Negative (Negative); Ketones Negative (Negative); Leukocyte Esterase Negative (Negative); Nitrite Negative (Negative); Specific Gravity 1.015 (1.005-1.025); Urobilinogen 0.2 mg/dL (Up to 0.2); pH 7.5 (5-8)
[2023-04-29 22:10] LABS: Bacteria Rare HPF (Negative); C & S Indicated? No; Casts Negative LPF (Negative); Crystals Negative HPF (Negative); Epithelial Cells Rare HPF (Negative); Mucus Negative (Negative); RBC >50 HPF (0-2); WBC Negative HPF (0-5)
[2023-04-30] VITALS (11 sets, daily range): BP systolic 110–148; BP diastolic 72–97; PULSE 99–112; RESP 2–19; TEMP 36.3–36.7; O2SAT 91–96
[2023-04-30 06:43] LABS: Abs Immature Grans 0.06 10^3/uL (0.0-0.06); Absolute Basophil Count 0.02 10^3/uL (0.0-0.2); Absolute Eosinophil Count 0.01 10^3/uL (0.0-0.7); Absolute Lymphocyte Count 1.18 10^3/uL (1.2-3.4); Absolute Monocyte Count 1.42 10^3/uL (0.1-0.8); Basophils % 0.2; Eosinophils % 0.1; HGB 18.2 g/dL (13.5-17.5); Immature Grans % 0.6; Lymphocytes % 10.9; MCH 31.1 pg (27.0-33.0); MCHC 31.6 % (32.0-36.0); MCV 99 fL (80-95); MPV 9.6 fL (8.0-11.0); Monocytes % 13.1; Neutrophils % 75.1; Platelet Count 126 10^3/uL (130-400); RBC 5.85 10^6/uL (4.36-5.78); RDW 14.8 % (11.8-14.1); RDW-SD 53.9 fL; WBC 10.86 10^3/uL (4.4-10.8)
[2023-04-30 06:46] LABS: Absolute Neutrophil Count 8.16 10^3/uL (1.2-6.7)
[2023-04-30 06:48] LABS: HCT 57.6 % (40.0-50.0)
[2023-04-30 06:57] LABS: ALT 13 U/L (16-63); AST 33 U/L (15-37); Albumin 3.2 g/dL (3.4-5.0); Alkaline Phosphatase 66 U/L (46-116); BUN 19 mg/dL (7-18); Bilirubin, Total 2.2 mg/dL (0.2-1.0); CREATININE 0.8 mg/dL (0.70-1.30); Calcium 8.7 mg/dL (8.5-10.1); Chloride 89 mmol/L (98-107); Estimated GFR 99.44 (mL/min/1.73m2); Glucose 90 mg/dL (74-106); Potassium 3.4 mmol/L (3.5-5.1); Sodium 138 mmol/L (136-145)
[2023-04-30 06:59] LABS: Anion Gap 3.99999 mmol/L (3-11); CO2 > 45.0 mmol/L (21.0-32.0)
[2023-04-30] MEDS: Aspirin 81 MG CHEW PO (07:42)
[2023-04-30] MEDS: Thiamine 100 MG TAB PO (07:42)
[2023-04-30] MEDS: guaiFENesin 600 MG TABCR PO ×2 (07:42→20:32)
[2023-04-30] MEDS: Spironolactone 50 MG TAB PO (07:42)
[2023-04-30] MEDS: predniSONE 20 MG TAB 40 MG PO (07:42)
[2023-04-30] MEDS: Albuterol/Ipratropium 3 ML UPD VIAL UPD ×4 (07:45→20:32)
--- NOTE | 2023-04-30 07:51 | RESPIRATORY ---
Pt reports that he used to smoke 1 pack/day cigarettes and has recently cut down to 5 cigarettes/day. Pt states that he can feel his oxygen is low all the time and has learned to deal with it. RT encouraged pt to keep working towards smoking cessation.
--- NOTE | 2023-04-30 07:55 | SMOKENOTE ---
Smoking Cessation Note: ASK Current tobacco use type and amount: 5 cigarettes a day Years of use: 40 Pack years: 40 ADVISE RT advised patient of the benefits of quitting. Pt is interested in smoking cessation tools such as the mints and Nicatrol inhaler. Pt states he tried the patch and gum before and they gave him the jitters. RT will follow up with provider to obtain tools during the patient's stay here. ASSESS Stage of readiness (choose one) [ ] Precontemplative (Not ready) [ ] Contemplative (Thinking about making a change) [ x ] Preparation (Ready to set a quit or take action immediately) [ ] Action Stage (New behaviour established) ASSIST Receiving NRT? [ x ] Yes [ ] Refused [ ] Contraindicated Smoking cessation packet [ ] Given [ x ] Refused ARRANGE (choose one) [ ] Referral made to [facility] Quits [ x ] Referral information/registration left for patient [ ] Referral refused Comments:
[2023-04-30] MEDS: Potassium Chloride 20 MEQ TABCR PO ×2 (12:51→17:00)
[2023-04-30 13:14] LABS: Magnesium 1.4 mg/dL (1.8-2.4)
--- NOTE | 2023-04-30 13:51 | PGE_ITS ---
Date of Service Date of service: 04/30/23 Time of Service: 13:51 Assessment and Plan Assessment and plan (1) Anasarca: Status: Acute Assessment and plan: continue diuresis, IV lasix drip one more day at patient request as he is feeling much better but still feels some edema. work up in ED is non-ischemic, serial troponin negative. Echocardiogram from February 10, 2023: Normal left ventricular wall thickness and chamber size.? Ejection fraction appears within the range of normal approximately 55% Right ventricle is severely dilated.? There is paradoxic septal motion, evidence of right ventricular volume overload.? Diastolic septal flattening suggests right ventricular pressure overload The right atrium is severely dilated.? Left atrial size is normal Aortic valve is trileaflet without stenosis or regurgitation Structurally normal tricuspid valve with moderate to severe regurgitation.? Estimated right ventricular systolic pressure is 58 mmHg continue monitoring of I/O and daily weights. Continue spironolactone 50mg daily. Elevate legs with michael wraps or TEDS for compression. will likely switch to bolus lasix tomorrow. low sodium diet. (2) Tobacco abuse disorder: Status: Acute Assessment and plan: nicotine replacement while hospitalized Encourage ongoing cessation. (3) Alcohol use: Status: Acute Assessment and plan: He endorses 1-2 drinks of vodka daily. BILI continues to improve Monitor withdrawal symptoms and begin CIWA scoring only if necessary. no signs of withdrawal yet Cont thiamine supplementation. (4) Hyperbilirubinemia: Status: Acute Assessment and plan: Total bili down to 2.1 Monitor. No abd pain/jaundice. (5) Polycythemia: Status: Acute Assessment and plan: thought to be Smoking related (chronic CO exposure from inhaled cigarette smoke). He is weaning off cigarettes. (6) Discharge planning issues: Status: Acute Assessment and plan: from previous hospitalization: Consider costs of medications prescribed; self-pay. is established with local pcp now case management will be following. discussed with DR Howard. Subjective Subjective Patient reports: no new complaints, tolerating liquids well, tolerating a regular diet, voiding w/o difficulty and afebrile; denies shortness of breath (denies) Exam Const General: cooperative and no acute distress Nutritional Appearance: overweight Orientation: alert, awake and oriented x3 HENMT Head: normal to inspection, normocephalic and atraumatic Mouth: oral mucosae normal Neck Neck: no JVD Chest Chest: normal inspection of the chest Resp Auscultation: wheezes scattered wheezes Cardio Rate: regular rate Rhythm: regular rhythm GI Inspection: normal to inspection Palpation: soft Auscultation: normal bowel sounds Skin General skin exam: dry skin and other (Chronic discoloration consistent with venous stasis bilateral lower) Neuro General: patient alert, patient awake, patient oriented x3 and no focal motor deficits Extrem General: edema Laterality: bilateral (lower up to waist) Objective Last Vital Signs Temp 36.4 C 04/30/23 06:09 Pulse 112 H 04/30/23 12:44 Resp 17 04/30/23 12:44 BP 136/85 04/30/23 06:09 Pulse Ox 93 04/30/23 12:44 Laboratory Results - last 24 hr 04/29/23 04/30/23 04/30/23 21:58 06:23 06:23 WBC 10.86 H RBC 5.85 H Hgb 18.2 H Hct 57.6 H* MCV 99 H MCH 31.1 MCHC 31.6 L RDW 14.8 H Plt Count 126 L MPV 9.6 Immature Gran % 0.6 Neutrophils % 75.1 Lymphocytes % 10.9 Monocytes % 13.1 Eosinophils % 0.1 Basophils % 0.2 Nucleated RBC % 0.0 Absolute Neutrophils 8.16 H Absolute Lymphocytes 1.18 L Absolute Monocytes 1.42 H Absolute Eosinophils 0.01 Absolute Basophils 0.02 Sodium 138 Potassium 3.4 L D Chloride 89 L Carbon Dioxide > 45.0 H Anion Gap 3.98762 BUN 19 H Creatinine 0.8 Est GFR (CKD-EPI 2020) 99.44 Glucose 90 Calcium 8.7 Magnesium Total Bilirubin 2.2 H AST 33 ALT 13 L Alkaline Phosphatase 66 Total Protein 7.0 Albumin 3.2 L Urine Color Yellow Urine Clarity Sl Cloudy Urine pH 7.5 Ur Specific [place] 1.015 Urine Protein Negative Urine Ketones Negative Urine Blood Large H Urine Nitrite Negative Urine Bilirubin Negative Urine Urobilinogen 0.2 Ur Leukocyte Esterase Negative Urine RBC >50 H Urine WBC Negative Ur Epithelial Cells Rare Urine Crystals Negative Urine Bacteria Rare Urine Casts Negative Urine Mucus Negative Ur Culture Indicated? No Urine Glucose Negative 04/30/23 12:42 WBC RBC Hgb Hct MCV MCH MCHC RDW Plt Count MPV Immature Gran % Neutrophils % Lymphocytes % Monocytes % Eosinophils % Basophils % Nucleated RBC % Absolute Neutrophils Absolute Lymphocytes Absolute Monocytes Absolute Eosinophils Absolute Basophils Sodium Potassium Chloride Carbon Dioxide Anion Gap BUN Creatinine Est GFR (CKD-EPI 2020) Glucose Calcium Magnesium 1.4 L Total Bilirubin AST ALT Alkaline Phosphatase Total Protein Albumin Urine Color Urine Clarity Urine pH Ur Specific [place] Urine Protein Urine Ketones Urine Blood Urine Nitrite Urine Bilirubin Urine Urobilinogen Ur Leukocyte Esterase Urine RBC Urine WBC Ur Epithelial Cells Urine Crystals Urine Bacteria Urine Casts Urine Mucus Ur Culture Indicated? Urine Glucose PAWSS Have you Been Recently Intoxicated or Drunk Within the Last 30 days?: No Have you Ever Experienced Previous Episodes of Alcohol Withdrawal?: No Have you ever Experienced Withdrawal Seizures?: No Have you ever Experienced Delirium Tremens(DT)s?: No Have you ever undergone Alcohol Rehabilitation Treatment (i.e, inpt ot outpatient treatment programs)?: No Have you ever Experienced Blackouts?: No Have you ever Combined Alcohol with other Downers within the last 90 days?: No Have you ever Combined Alcohol with any other Substance of Abuse during the last 90 days?: No Positive Blood Alcohol level on Presentation? [PCS.BAL]: No Evidence of Increased Autonomic Activity (i.e. HR>120, tremor, sweating, agitation, nausea)?: No Result: 0 Time Spent with Patient Time Spent with Patient: 25-34 minutes Time was spent: preparing to see the patient(eg.review tests), obtaining and/or reviewing separately otained hiistory, ordering medications,tests, procedures, indepentently interpreting results and counseling the patient
[2023-04-30] MEDS: Normal Saline Flush 10 ML SYR IVP (14:16)
[2023-04-30] MEDS: MAGNESIUM SULFATE 2 GM/50 ML BAG IVPB (14:16)
[2023-04-30] MEDS: Enoxaparin 40 MG/0.4 ML SYR SC (17:28)
[2023-05-01 07:15] VITALS: BP 129/88; PULSE 97; RESP 18; TEMP 36.5; O2SAT 91
[2023-05-01 07:18] LABS: Abs Immature Grans 0.04 10^3/uL (0.0-0.06); Absolute Basophil Count 0.02 10^3/uL (0.0-0.2); Absolute Eosinophil Count 0.05 10^3/uL (0.0-0.7); Absolute Lymphocyte Count 1.08 10^3/uL (1.2-3.4); Absolute Monocyte Count 1.19 10^3/uL (0.1-0.8); Absolute Neutrophil Count 5.62 10^3/uL (1.2-6.7); Basophils % 0.3; Eosinophils % 0.6; Immature Grans % 0.5; Lymphocytes % 13.5; MCH 31.8 pg (27.0-33.0); MCHC 32.2 % (32.0-36.0); MCV 99 fL (80-95); MPV 9.7 fL (8.0-11.0); Monocytes % 14.9; Neutrophils % 70.2; Platelet Count 116 10^3/uL (130-400); RDW 14.6 % (11.8-14.1); RDW-SD 53.6 fL
[2023-05-01 07:34] LABS: HCT 60.3 % (40.0-50.0); HGB 19.4 g/dL (13.5-17.5)
[2023-05-01 07:42] LABS: BUN 22 mg/dL (7-18); CREATININE 0.9 mg/dL (0.70-1.30); Chloride 89 mmol/L (98-107); Estimated GFR 95.97 (mL/min/1.73m2); Glucose 75 mg/dL (74-106); Potassium 3.5 mmol/L (3.5-5.1); Sodium 140 mmol/L (136-145)
[2023-05-01 07:46] VITALS: PULSE 94; RESP 18; RESP 2; RESP 5; RESP 7; RESP 8; O2SAT 92
[2023-05-01] MEDS: Albuterol/Ipratropium 3 ML UPD VIAL UPD (07:46)
[2023-05-01 07:48] VITALS: PULSE 102; RESP 18; RESP 2; RESP 5; RESP 7; RESP 8; O2SAT 93
[2023-05-01 07:50] LABS: Anion Gap 5.99999 mmol/L (3-11); CO2 > 45.0 mmol/L (21.0-32.0)
[2023-05-01 08:32] LABS: Diff Comment Diff Reviewed; RBC 6.11 10^6/uL (4.36-5.78); RBC Morphology Normal
[2023-05-01] MEDS: Spironolactone 50 MG TAB PO (10:41)
[2023-05-01] MEDS: Aspirin 81 MG CHEW PO (10:41)
[2023-05-01] MEDS: predniSONE 20 MG TAB 40 MG PO (10:41)
[2023-05-01] MEDS: Potassium Chloride 20 MEQ TABCR PO ×3 (10:42→16:33)
[2023-05-01] MEDS: guaiFENesin 600 MG TABCR PO ×2 (10:42→20:03)
[2023-05-01] MEDS: Normal Saline Flush 10 ML SYR IVP (10:43)
--- NOTE | 2023-05-01 10:47 | NUR.NOTE ---
this rn is attempting to educate pt on possible removal of tovar cath after d/c of lasix drip and he is getting very hostile towards this rn. this rn educated pt that it is in my role to make sure patients know the steps that will lead to their d/c. pt remains unable to conprehend.
--- NOTE | 2023-05-01 11:18 | PGE_ITS ---
Date of Service Date of service: 05/01/23 Time of Service: 11:18 Assessment and Plan Assessment and plan (1) Hypoxemia: Status: Chronic Assessment and plan: room air sats in the 70's with ambulation, refuses oxygen, intends to keep smoking suspect TIA, has pulmonary hypertension. (2) Anasarca: Status: Acute Assessment and plan: continue diuresis, stop IV lasix drip, change to bolus BID work up in ED is non-ischemic, serial troponin negative. Echocardiogram from February 10, 2023: Normal left ventricular wall thickness and chamber size.? Ejection fraction appears within the range of normal approximately 55% Right ventricle is severely dilated.? There is paradoxic septal motion, evidence of right ventricular volume overload.? Diastolic septal flattening suggests right ventricular pressure overload The right atrium is severely dilated.? Left atrial size is normal Aortic valve is trileaflet without stenosis or regurgitation Structurally normal tricuspid valve with moderate to severe regurgitation.? Estimated right ventricular systolic pressure is 58 mmHg continue monitoring of I/O and daily weights. Continue spironolactone 50mg daily. Elevate legs with michael wraps or TEDS for compression. low sodium diet. (3) COPD exacerbation: Status: Acute Assessment and plan: feels breathing at baseline, continue steroid burst and updrafts. (4) Tobacco abuse disorder: Status: Acute Assessment and plan: nicotine replacement while hospitalized Encourage ongoing cessation. plans to continue smoking (5) Alcohol use: Status: Acute Assessment and plan: He endorses 1-2 drinks of vodka daily. BILI continues to improve no withdrawal Cont thiamine supplementation. (6) Hyperbilirubinemia: Status: Acute Assessment and plan: Total bili down to 2.1 Monitor. No abd pain/jaundice. (7) Polycythemia: Status: Acute Assessment and plan: thought to be Smoking related (chronic CO exposure from inhaled cigarette smoke). He is weaning off cigarettes. (8) Discharge planning issues: Status: Resolved Assessment and plan: from previous hospitalization: Consider costs of medications prescribed; self-pay. is established with local pcp now case management will be following. discussed with DR Howard. Subjective Subjective Patient reports: no new complaints, feels better, tolerating liquids well, tolerating a regular diet, bowel movement and afebrile; denies shortness of breath (at baseline, hypoxic with ambulation) Exam Const General: cooperative and no acute distress Orientation: alert, awake and oriented x3 HENMT Head: normal to inspection, normocephalic and atraumatic Mouth: oral mucosae normal Neck Neck: no JVD Chest Chest: normal inspection of the chest Resp Auscultation: wheezes scattered wheezes Cardio Rate: regular rate Rhythm: regular rhythm GI Inspection: normal to inspection Palpation: soft Auscultation: normal bowel sounds Skin General skin exam: dry skin and other (Chronic discoloration consistent with venous stasis bilateral lower) Neuro General: patient alert, patient awake, patient oriented x3 and no focal motor deficits Extrem General: edema Laterality: bilateral (lower up to waist) Objective Last Vital Signs Temp 36.5 C 05/01/23 07:15 Pulse 102 H 05/01/23 07:48 Resp 18 05/01/23 07:48 BP 129/88 05/01/23 07:15 Pulse Ox 93 05/01/23 07:48 Laboratory Results - last 24 hr 04/30/23 05/01/23 05/01/23 12:42 06:21 06:21 WBC 8.00 RBC 6.11 H Hgb 19.4 H* Hct 60.3 H* MCV 99 H MCH 31.8 MCHC 32.2 RDW 14.6 H Plt Count 116 L MPV 9.7 Immature Gran % 0.5 Neutrophils % 70.2 Lymphocytes % 13.5 Monocytes % 14.9 Eosinophils % 0.6 Basophils % 0.3 Nucleated RBC % 0.0 Absolute Neutrophils 5.62 Absolute Lymphocytes 1.08 L Absolute Monocytes 1.19 H Absolute Eosinophils 0.05 Absolute Basophils 0.02 RBC Morphology Normal Sodium 140 Potassium 3.5 Chloride 89 L Carbon Dioxide > 45.0 H Anion Gap 5.84664 BUN 22 H Creatinine 0.9 Est GFR (CKD-EPI 2020) 95.97 Glucose 75 Calcium 9.0 Magnesium 1.4 L PAWSS Have you Been Recently Intoxicated or Drunk Within the Last 30 days?: No Have you Ever Experienced Previous Episodes of Alcohol Withdrawal?: No Have you ever Experienced Withdrawal Seizures?: No Have you ever Experienced Delirium Tremens(DT)s?: No Have you ever undergone Alcohol Rehabilitation Treatment (i.e, inpt ot outpatient treatment programs)?: No Have you ever Experienced Blackouts?: No Have you ever Combined Alcohol with other Downers within the last 90 days?: No Have you ever Combined Alcohol with any other Substance of Abuse during the last 90 days?: No Positive Blood Alcohol level on Presentation? [PCS.BAL]: No Evidence of Increased Autonomic Activity (i.e. HR>120, tremor, sweating, agitation, nausea)?: No Result: 0 Time Spent with Patient Time Spent with Patient: 25-34 minutes Time was spent: preparing to see the patient(eg.review tests), obtaining and/or reviewing separately otained hiistory, ordering medications,tests, procedures, referring, communicating with other health director of healthcare systems, indepentently interpreting results, counseling the patient and care coordination
--- NOTE | 2023-05-01 11:46 | RESPIRATORY ---
RT spoke with patient regarding the possible need for home O2. Patient states that he can feel when his O2 is low and that it doesn't bother him. Pt stated that he is not interested in obtaining new home O2 at time of discharge from this hospital stay. Pt currently smokes aprx 5 cigarettes/day, and states that he does not smoke inside his house.
[2023-05-01 14:39] VITALS: BP 124/89; PULSE 106; RESP 20; TEMP 37.2; O2SAT 91
[2023-05-01] MEDS: Furosemide 40 MG/4 ML VIAL IVP (16:33)
[2023-05-01] MEDS: Budesonide/Formoterol 160/4.5 6 GM 60 PUFF INH IH (20:03)
--- NOTE | 2023-05-01 20:23 | NUR.NOTE ---
Nursing Note: pt extremely upset about his tovar being removed at 3am. says that he is refusing removal
--- NOTE | 2023-05-02 03:44 | NUR.NOTE ---
Nursing Note:tovar was supposed to be removed at 0300. patient continues to refused this. stating that he would like to leave it in until his scrotum swelling has gone down. is refusing me even touching tovar. charge made aware. made aware.
[2023-05-02 06:48] VITALS: BP 153/107; PULSE 98; TEMP 36.1; O2SAT 90
[2023-05-02] MEDS: Budesonide/Formoterol 160/4.5 6 GM 60 PUFF INH IH ×2 (08:49→19:45)
[2023-05-02] MEDS: Spironolactone 50 MG TAB PO (09:44)
[2023-05-02] MEDS: Aspirin 81 MG CHEW PO (09:45)
[2023-05-02] MEDS: predniSONE 20 MG TAB 40 MG PO (09:45)
[2023-05-02] MEDS: guaiFENesin 600 MG TABCR PO ×2 (09:45→19:45)
[2023-05-02] MEDS: Furosemide 40 MG/4 ML VIAL IVP ×2 (09:45→15:58)
[2023-05-02] MEDS: Potassium Chloride 20 MEQ TABCR PO ×3 (09:46→16:11)
[2023-05-02] MEDS: Normal Saline Flush 10 ML SYR IVP ×2 (09:47→15:58)
--- NOTE | 2023-05-02 14:51 | W.PM.PROGNOT ---
Date of Service Date of service: 05/02/23 Time of Service: 14:51 Assessment and Plan Assessment and plan (1) Hypoxemia: Status: Chronic Assessment and plan: room air sats in the 70's with ambulation, refuses oxygen, intends to keep smoking suspect TIA, has pulmonary hypertension. (2) Anasarca: Status: Acute Assessment and plan: continue diuresis, stop IV lasix drip, change to bolus BID work up in ED is non-ischemic, serial troponin negative. Echocardiogram from February 10, 2023: Normal left ventricular wall thickness and chamber size.? Ejection fraction appears within the range of normal approximately 55% Right ventricle is severely dilated.? There is paradoxic septal motion, evidence of right ventricular volume overload.? Diastolic septal flattening suggests right ventricular pressure overload The right atrium is severely dilated.? Left atrial size is normal Aortic valve is trileaflet without stenosis or regurgitation Structurally normal tricuspid valve with moderate to severe regurgitation.? Estimated right ventricular systolic pressure is 58 mmHg continue monitoring of I/O and daily weights. Continue spironolactone 50mg daily. Elevate legs with michael wraps or TEDS for compression. low sodium diet. (3) COPD exacerbation: Status: Acute Assessment and plan: feels breathing at baseline, continue steroid burst and updrafts. (4) Tobacco abuse disorder: Status: Acute Assessment and plan: nicotine replacement while hospitalized Encourage ongoing cessation. plans to continue smoking (5) Alcohol use: Status: Acute Assessment and plan: He endorses 1-2 drinks of vodka daily. BILI continues to improve no withdrawal Cont thiamine supplementation. (6) Hyperbilirubinemia: Status: Acute Assessment and plan: Total bili down to 2.1 Monitor. No abd pain/jaundice. (7) Polycythemia: Status: Acute Assessment and plan: thought to be Smoking related (chronic CO exposure from inhaled cigarette smoke). He is weaning off cigarettes. (8) Discharge planning issues: Status: Acute Assessment and plan: from previous hospitalization: Consider costs of medications prescribed; self-pay. is established with local pcp now case management will be following. discussed with DR Richard Subjective Subjective Patient reports: no new complaints, feels better, tolerating liquids well, tolerating a regular diet and afebrile Interval history since last seen: reports decreased swelling Exam Const General: cooperative and no acute distress Orientation: alert, awake and oriented x3 HENMT Head: normal to inspection, normocephalic and atraumatic Mouth: oral mucosae normal Neck Neck: no JVD Chest Chest: normal inspection of the chest Resp Auscultation: wheezes scattered wheezes Cardio Rate: regular rate Rhythm: regular rhythm GI Inspection: normal to inspection Palpation: soft Auscultation: normal bowel sounds Skin General skin exam: dry skin and other (Chronic discoloration consistent with venous stasis bilateral lower) Neuro General: patient alert, patient awake, patient oriented x3 and no focal motor deficits Extrem General: edema Laterality: bilateral (lower up to waist) Objective Last Vital Signs Temp 36.1 C L 05/02/23 06:48 Pulse 98 H 05/02/23 06:48 Resp 20 05/01/23 14:39 BP 153/107 H 05/02/23 06:48 Pulse Ox 90 L 05/02/23 06:48 PAWSS Have you Been Recently Intoxicated or Drunk Within the Last 30 days?: No Have you Ever Experienced Previous Episodes of Alcohol Withdrawal?: No Have you ever Experienced Withdrawal Seizures?: No Have you ever Experienced Delirium Tremens(DT)s?: No Have you ever undergone Alcohol Rehabilitation Treatment (i.e, inpt ot outpatient treatment programs)?: No Have you ever Experienced Blackouts?: No Have you ever Combined Alcohol with other Downers within the last 90 days?: No Have you ever Combined Alcohol with any other Substance of Abuse during the last 90 days?: No Positive Blood Alcohol level on Presentation? [PCS.BAL]: No Evidence of Increased Autonomic Activity (i.e. HR>120, tremor, sweating, agitation, nausea)?: No Result: 0 Time Spent with Patient Time Spent with Patient: 25-34 minutes Time was spent: preparing to see the patient(eg.review tests), ordering medications,tests, procedures, indepentently interpreting results and care coordination
--- NOTE | 2023-05-02 18:21 | CMPROGNOTE_ITS ---
Date of service: 05/02/23 Time of Service: 18:21 Care Management Progress Note Progress Note Text Progress Note Text: S/O: Eddie was ambulating in the garcia when CM met with him. he was pleasant and appeared to be in good spirits. Nolan has diuresed well and the lasix drip has been discontinued. It is expected that he will be discharged home tomorrow. He will follow up with [facility] re:insurance when they reopen after the long weekend on Tuesday. A: 62 year old male admitted to [facility] on 04/27/23 for Anasarca P:? Nolan plans to return home when medically cleared by provider.? He will follow up with his PCP, [facility] at [facility] and his discharge plan of care. No new services are anticipated at this time. CM will continue? to follow.
[2023-05-02 19:19] VITALS: BP 115/80; PULSE 103; RESP 16; TEMP 36.9; O2SAT 91
[2023-05-03] MEDS: Potassium Chloride 20 MEQ TABCR PO ×2 (07:13→10:49)
[2023-05-03] MEDS: Furosemide 40 MG/4 ML VIAL IVP (07:13)
[2023-05-03] MEDS: Spironolactone 50 MG TAB PO (07:13)
[2023-05-03] MEDS: Aspirin 81 MG CHEW PO (07:13)
[2023-05-03] MEDS: predniSONE 20 MG TAB 40 MG PO (07:14)
[2023-05-03] MEDS: Normal Saline Flush 10 ML SYR IVP (07:14)
[2023-05-03] MEDS: guaiFENesin 600 MG TABCR PO (07:14)
[2023-05-03 07:21] VITALS: BP 104/71; PULSE 62; RESP 17; TEMP 36.1; O2SAT 90
[2023-05-03] MEDS: Budesonide/Formoterol 160/4.5 6 GM 60 PUFF INH IH (07:52)
[2023-05-03 09:35] LABS: Anion Gap 1.2 mmol/L (3-11); BUN 31 mg/dL (7-18); CO2 40.8 mmol/L (21.0-32.0); Calcium 9.6 mg/dL (8.5-10.1); Chloride 90 mmol/L (98-107); Estimated GFR 84.57 (mL/min/1.73m2); Glucose 164 mg/dL (74-106); Magnesium 1.6 mg/dL (1.8-2.4); Potassium 3.8 mmol/L (3.5-5.1); Sodium 132 mmol/L (136-145)
--- NOTE | 2023-05-03 11:05 | W.PM.DS.N ---
Date of service: 05/03/23 Time of Service: 11:05 DS: Diagnosis Discharge Diagnosis (1) Hypoxemia: Status: Chronic (2) Anasarca: Status: Acute (3) COPD exacerbation: Status: Acute (4) Tobacco abuse disorder: Status: Acute (5) Alcohol use: Status: Acute (6) Hyperbilirubinemia: Status: Acute (7) Polycythemia: Status: Acute Discharge Plan Disposition Patient Disposition: Home Condition: Stable Discharge Details Reason For Visit: Anasarca Admit Date/Time: 04/27/23 12:22 Admit Provider: Perez Howard Attending Provider: Perez Howard Primary Care Provider: Norma Ba Hospital Course Hospital Course: This is a 62-year-old male patient with history of pulmonary hypertension who presents to the emergency department with increased edema and some shortness of breath. Although he was denying the shortness of breath stating that he feels that is at his baseline. He was given IV Lasix and started on IV steroids and admitted to the medical surgical unit. An old echocardiogram was reviewed that showed pulmonary hypertension with RSVP of 58. I did discuss outpatient pulmonary work-up and sleep studies as we suspect he has obstructive sleep apnea. He also was noted to be hypoxic with ambulation desatting into the 70s but with rest back to the low 90s and high 80s. We did discuss oxygen qualifications but he adamantly refused oxygen evaluation and states he would not wear oxygen at home at this time and stated that he feels fine. Also discussed was smoking cessation which he is currently not interested in completely stopping and plans to continue smoking 5 to 7 cigarettes a day. He completed a steroid burst to treat his COPD exacerbation and was aggressively diuresed with a Lasix drip with marked improvement in his anasarca. He will be discharged to home on 40 mg p.o. twice daily Lasix and advised to follow-up with his primary care provider for lab monitoring and further medication recommendations. He also stated that he should be on Advair but was unable to afford the prescription so he has ordered it from [facility] and it has not arrived as of yet. We will dispense the Symbicort inhaler that he was receiving here while hospitalized for home use until his Advair arrives. He is being discharged to home with no new services he was advised to follow-up with his primary care provider within the next week or return here sooner for new or worsening symptoms. discharge discussed with Dr Richard. Home Meds and New Rx's Prescriptions: New budesonide-formoterol 160-4.5 mcg/actuation Hfa Aerosol Inhaler 2 puff inhalation BID Qty: 0 0RF albuterol sulfate 2.5 mg /3 mL (0.083 %) Solution For Nebulization 2.5 mg UPD Q2H PRN PRNQty: 0 0RF Continued aspirin [Children's Aspirin] 81 mg Tablet,Chewable 81 mg PO DAILY Qty: 0 0RF spironolactone 50 mg tablet 50 mg PO DAILY Qty: 30 0RF Changed furosemide [Lasix] 20 mg tablet 40 mg PO BID Qty: 60 0RF Discontinued doxycycline hyclate 100 mg Capsule 100 mg PO BID Qty: 12 0RF No Action magnesium oxide 400 mg (241.3 mg magnesium) Tablet 400 mg PO BID Qty: 0 0RF thiamine mononitrate (vit B1) [Vitamin B-1 (mononitrate)] 100 mg Tablet 100 mg PO QAM Qty: 0 0RF Discharge Instructions Instructions: Heart Failure (DC), Edema (DC) Stand Alone Forms: Nursing Discharge Form Referrals: Norma Ba [Primary Care Provider] - (Please call and make an Appointment in the next 1-2 weeks ) Activity:: Activity as Tolerated Equipment/Supplies:: No Equipment Needed Diet:: Low Sodium Discharge Orders Discharge Orders: Discharge Order (Routine); Ordered 05/03/23 Ordered By: Shea Zacarias DS: Summary Time Spent with Patient providing and/or coordinating discharge services: Less than 30 minutes Status at Discharge Functional status at discharge: independent ambulation Overall status at discharge: patient is back to baseline Mental Status: mental status grossly normal Speech and Movement: speech and movement normal Mood: congruent mood Affect: normal affect Exam Const General: cooperative and no acute distress Orientation: alert, awake and oriented x3 HENMT Head: normal to inspection, normocephalic and atraumatic Mouth: oral mucosae normal Neck Neck: no JVD Chest Chest: normal inspection of the chest Resp Auscultation: wheezes scattered wheezes Cardio Rate: regular rate Rhythm: regular rhythm GI Inspection: normal to inspection Palpation: soft Auscultation: normal bowel sounds Skin General skin exam: dry skin and other (Chronic discoloration consistent with venous stasis bilateral lower) Neuro General: patient alert, patient awake, patient oriented x3 and no focal motor deficits Extrem General: no pedal edema (trace, markedly improved since admission) Psych Mental Status: mental status grossly normal Speech and Movement: speech and movement normal Mood: congruent mood Affect: normal affect DS: Data Vitals/I&O Vitals and I&O: Vital Signs Temperature 36.1 C L 05/03/23 07:21 Temperature Source Tympanic 05/03/23 07:21 Pulse 62 05/03/23 07:21 Pulse Rhythm Regular 05/03/23 07:17 Pulse 105 H 04/27/23 13:31 Respiratory Rate 17 05/03/23 07:21 Respiratory Effort Normal, Non-Labored 05/03/23 07:17 Respiratory Depth Normal 05/03/23 07:17 Respiratory Pattern Normal 05/03/23 07:17 Blood Pressure 104/71 05/03/23 07:21 Blood Pressure Mean 110 04/27/23 13:31 Blood Pressure Position Supine 04/27/23 09:11 Pulse Oximetry 90 L 05/03/23 07:21 Oxygen Delivery Method Room Air 05/03/23 07:21 Oxygen Flow Rate 0 05/03/23 07:21 Pain Level 0 05/02/23 19:19 Comment pt refused vitals throughout night 05/03/23 05:21 Intake & Output 05/02/23 05/02/23 05/03/23 11:59 23:59 11:59 Intake Total 550 / 1450 900 / 1450 Output Total 1900 / 3000 1100 / 3000 1999 / 1999 Balance -1350 / -1550 -200 / -1550 -1999 Weight 84 kg Intake: Oral 550 / 1450 900 / 1450 Output: Urine 1900 / 3000 1100 / 3000 1999 Other: Urine Color Yellow Yellow Yellow Urine Appearance Clear Clear Clear Voiding Methods Urinal Urinal Data Completed and Pending Labs on day of discharge: Labs from last 24 hours 05/03/23 09:03 Sodium 132 L Potassium 3.8 Chloride 90 L Carbon Dioxide 40.8 H Anion Gap 1.2 L BUN 31 H Creatinine 1.0 Est GFR (CKD-EPI 2020) 84.57 Glucose 164 H Calcium 9.6 Magnesium 1.6 L PFSH All Active Problems (Updated 05/02/23 @ 14:53 by Shea Zacarias, SQL [employer] D[employer] DEVELOPER) Discharge planning issues (Acute) COPD exacerbation (Acute) Hypoxemia (Chronic) Pulmonary hypertension (Acute) Polycythemia (Acute) Hyperbilirubinemia (Acute) Elevated BP without diagnosis of hypertension (Acute) Alcohol use (Acute) Tobacco abuse disorder (Acute) Anasarca (Acute) Social History Smoking/Tobacco Use Status: Current every day Tobacco Type: cigarettes Smoking risk assessment performed?: Yes Alcohol Intake: current Alcohol Intake frequency: 0-2 drinks per day Alcohol type: hard liquor Drug use: Never Substance use type: does not use Do you feel safe at home: Yes Do you feel safe in your relationship?: Yes Time Spent with Patient Time Spent with Patient: <45 minutes Time was spent: preparing to see the patient(eg.review tests), ordering medications,tests, procedures and counseling the patient
[2023-05-03] MEDS: Albuterol HFA 8 GM 60 PUFF INH IH (12:54)
== END 2023-05-03 13:01 | disposition home or self-care (01) | DRG 191 ==
LOC: ER 12:26 → MS 13:58
PROVIDERS: Family Medicine; Internal Medicine; Nurse Practitioner Acute Care; Admitting Provider Internal Medicine; Emergency Provider Student in an Organized Health Care Education/Training Program; PCP Nurse Practitioner Family; Visit Provider Internal Medicine
DX: J44.1 Chronic obstructive pulmonary disease with (acute) exacerbation (principal); J90 Pleural effusion, not elsewhere classified; R18.8 Other ascites; R09.02 Hypoxemia; I10 Essential (primary) hypertension; F10.10 Alcohol abuse, uncomplicated; D45 Polycythemia vera; I27.20 Pulmonary hypertension, unspecified; F17.210 Nicotine dependence, cigarettes, uncomplicated; K59.00 Constipation, unspecified; E80.6 Other disorders of bilirubin metabolism; I51.7 Cardiomegaly; I87.2 Venous insufficiency (chronic) (peripheral); G47.33 Obstructive sleep apnea (adult) (pediatric)
CPT/HCPCS: 36415; 51702; 71275; 80048; 80053; 82805; 93005; 93308; 94640; 96374; 99285; 99406; J1650; 71045; 80320; 81003; 81015; 82248; 83735; 83880; 84484; 85025; 85379; 93010; 94664; 94667; 94668; 94760; 99223; 99233; 99239; J1940; J1941; J2930; J7512; J7620